=== PATIENT | female | born 1985 | race Caucasian/White ===

== ENCOUNTER 2017-10-05 13:55 | Emergency (ER) | payer BC, MEDICAID ==
--- NOTE | 2017-10-05 14:56 | UC ---
Adalid aPula Jennifer, scribed for Gino Stern MD on 10/05/17 at 1422 . General HPI - HPI Summary HPI Summary: The patient is a 32 year old female who complains of body aches and sore throat since last night. She reports that upon onset she felt more tired than usual. This morning after waking up, her hands and feet hurt, and her whole body felt achey. She adds that her sore throat has worsened and shes had an increasing fever throughout the day. She additionally complains of her eye balls hurting and lower abdominal/pelvic pain that is unusual for her. She took Ibuprofen and came to . She adds that her 15 month old son was recently sick. - History of Current Complaint Chief Complaint: UCRespiratory Stated Complaint: FLU SYMPTOMS Time Seen by Provider: 10/05/17 14:14 Hx Obtained From: Patient Hx Last Menstrual Period: now Onset/Duration: Sudden Onset, Lasting Hours - began last night, Still Present, Worse Since Timing: Constant Onset Severity: Moderate Current Severity: Moderate Pain Intensity: 6 Associated Signs & Symptoms: Positive: Other - body aches, sore throat, fever, lower abdominal/pelvic pain - Allergy/Home Medications Allergies/Adverse Reactions: Allergies Allergy/AdvReac Type Severity Reaction Status Date / Time propylene glycol Allergy Rash And Verified 10/05/17 14:06 Itching Home Medications: Home Medications NK [No Home Medications Reported] 10/05/17 [History Confirmed 10/05/17] PMH/Surg Hx/FS Hx/Imm Hx Previously Healthy: Yes - NEG: HTN, DM - Surgical History Surgical History: None - Family History Known Family History: Negative: Diabetes - Social History Alcohol Use: None Substance Use Type: None Smoking Status (MU): Never Smoked Tobacco Review of Systems Constitutional: Fever Musculoskeletal: Myalgia - hands, feet, body, eyes, pelvic area aches All Other Systems Reviewed And Are Negative: Yes Physical Exam - Summary Physical Exam Summary: General: mildly ill appearing, no pain distress Skin: warm, color reflects adequate perfusion, dry Head: normal Eyes: EOMI, IMTIAZ ENT: Tonsils 2+ bilaterally, exudate on right tonsil, erythema posterior pharynx , posterior anterior cervical lymphadenopathy, positive rhinorrhea. Neck: supple, nontender Respiratory: CTA, breath sounds present Cardiovascular: RRR Abdomen: soft, nontender Bowel: present Musculoskeletal: normal, strength/ROM intact Neurological: normal, sensory/motor intact, A&O x3 Psychological: affect/mood appropriate Triage Information Reviewed: Yes Vital Signs: Initial Vital Signs Temp 98.8 F 10/05/17 14:02 Pulse 112 10/05/17 14:02 Resp 18 10/05/17 14:02 BP 116/80 10/05/17 14:02 Pulse Ox 100 10/05/17 14:02 Vital Signs Reviewed: Yes Course/Dx - Course Course Of Treatment: DISCUSSED RESULTS WITH PATIENT. SX TREATMENT; GET RECHECKED IF WORSE. - Differential Dx - Multi-Symptom Provider Diagnoses: FEVER. MYALGIAS Discharge - Discharge Plan Condition: Stable Disposition: HOME Patient Education Materials: Fever in Adults (ED) Referrals: Rosalva Hinds MD [Primary Care Provider] - Additional Instructions: FOLLOW UP WITH YOUR DOCTOR. GET RECHECKED FOR ANY WORSENING OF YOUR CONDITION OR QUESTIONS OR CONCERNS. The documentation as recorded by the Adalid monge Jennifer accurately reflects the service I personally performed and the decisions made by me, Gino Stern MD.
== END 2017-10-05 15:10 | disposition home or self-care (01) ==
LOC: UCEAST 13:55
DX: R50.9 Fever, unspecified (principal); M79.1 Myalgia
CPT/HCPCS: 87502; 87651; 99201; G0463

== ENCOUNTER 2017-10-07 13:32 | Emergency (ER) | payer MEDICAID ==
--- NOTE | 2017-10-07 14:14 | UC ---
FLU HPI - HPI Summary HPI Summary: PT presents with fever, body aches, sore throat, and fatigue. She was seen for these symptoms 2 days ago and had a negative flu and strep test. She says that her symptoms are getting worse - specifically her sore throat. Now is having more pain with eating and drinking. Tonsils are more swollen and now have giant white spots on them. She says she has also felt feverish. Denies productive cough, SOB, chest pain, n/v/d/c. - History of Current Complaint Chief Complaint: UCGeneralIllness Stated Complaint: SORE THROAT FEVER BODYACHES Time Seen by Provider: 10/07/17 14:13 Hx Obtained From: Patient Hx Last Menstrual Period: 10/01/17 Onset/Duration: Gradual Onset Severity Currently: Moderate Severity Initially: Moderate Pain Intensity: 7 Pain Scale Used: 0-10 Numeric - Allergy/Home Medications Allergies/Adverse Reactions: Allergies Allergy/AdvReac Type Severity Reaction Status Date / Time propylene glycol Allergy Rash And Verified 10/05/17 14:06 Itching Home Medications: Home Medications Ibuprofen TAB* [Motrin TAB* 800 MG] 800 mg PO Q6H 10/07/17 [History Confirmed ] PMH/Surg Hx/FS Hx/Imm Hx Previously Healthy: Yes - Surgical History Surgical History: Yes Surgery Procedure, Year, and Place: bilateral eustachian tubes as child - Family History Known Family History: Negative: Diabetes - Social History Lives: With Family Alcohol Use: None Substance Use Type: None Smoking Status (MU): Never Smoked Tobacco Review of Systems Constitutional: Fever, Fatigue, Other - Body aches Skin: Negative Eyes: Negative ENT: Sore Throat Respiratory: Negative Cardiovascular: Negative Gastrointestinal: Negative Neurovascular: Negative Musculoskeletal: Negative Neurological: Negative Psychological: Negative All Other Systems Reviewed And Are Negative: Yes Physical Exam - Summary Physical Exam Summary: GENERAL: Mildly ill appearing. NAD. WDWN. SKIN: No rashes, sores, ulcers, masses, lesions. HEENT: Head: AT/NC Eyes: EOM intact. Conjunctiva clear without inflammation or discharge. Ears: Hearing grossly normal. TMs intact, no bulging, erythema, or edema. Nose: Nasal mucosa pink and moist. NTTP maxillary and frontal sinus. Throat: Posterior oropharynx moderate erythema and exudates on b/l tonsils. 3+ tonsils. Uvula midline. NECK: Supple. Tender anterior LAD. CHEST: CTAB. No r/r/w. No accessory muscle use. Breathing comfortably and in no distress. CV: RRR. Without m/r/g. Pulses intact. Brisk cap refill. ABDOMEN: NTTP. Bowel sounds intact. No rebound or guarding. NEURO: Alert. CN II-XII grossly intact. PSYCH: Age appropriate behavior. Triage Information Reviewed: Yes Vital Signs: Initial Vital Signs Temp 99 F 10/07/17 13:48 Pulse 94 10/07/17 13:48 Resp 18 10/07/17 13:48 BP 107/68 10/07/17 13:48 Pulse Ox 100 10/07/17 13:48 Flu Course/Dx - Course Course Of Treatment: UA negative. Will draw for CBC and mono today. Treat with zpak and prednisone. 4mg decadron given po in clinic today. - Differential Dx/Diagnosis Provider Diagnoses: Tonsillitis Discharge - Discharge Plan Condition: Stable Disposition: HOME Prescriptions: Azithromycin TAB* [Zithromax TAB (Z-SAURABH) 250 mg #6 tabs] 2 tab PO .TODAY, THEN 1 DAILY #1 saurabh predniSONE TAB* [Deltasone TAB*] 50 mg PO DAILY #5 tab Patient Education Materials: Tonsillitis (ED) Referrals: No Primary Care Phys,NOPCP [Primary Care Provider] - Additional Instructions: If you develop a fever, shortness of breath, chest pain, new or worsening symptoms - please call your PCP or go to the ED.
[2017-10-07] MEDS ORDERED: Dexamethasone TAB* 4 MG PO ONE (14:20)
[2017-10-07 18:34] LABS: ABS Basophils 0 10^3/ul (0-0.2); ABS Eosinophils 0 10^3/ul (0-0.6); ABS Lymphocytes 1.2 10^3/ul (1.0-4.8); ABS Monocytes 1.1 10^3/ul (0-0.8); ABS Neutrophils 5.8 10^3/ul (1.5-7.7); ABS Nucleated RBC 0 10^3/ul; Eosinophil % 0.5 % (0-6); Hematocrit 38 % (35-47); Hemoglobin 12.7 g/dl (12.0-16.0); Lymphocyte % 14.2 % (25-47); Mean Corpuscular HGB Conc 33 g/dl (31-36); Mean Corpuscular Hemoglobin 28 pg (27-31); Mean Corpuscular Volume 83 fL (80-97); Mean Platelet Volume 9 um3 (7.4-10.4); Nucleated Red Blood Cells % 0.1; Platelet Count 226 10^3/ul (150-450); Red Cell Distribution Width 13 % (10.5-15); White Blood Count 8.2 10^3/ul (3.5-10.8)
== END 2017-10-07 14:45 | disposition home or self-care (01) ==
LOC: UCEAST 13:32
DX: J03.90 Acute tonsillitis, unspecified (principal)
CPT/HCPCS: 36415; 81003; 85025; 86308; 99212; G0463; J8540

== ENCOUNTER 2018-07-19 08:09 | Emergency (ER) | payer BC, MEDICAID ==
--- NOTE | 2018-07-19 08:35 | ED ---
Complex/Multi-Sys Presentation - HPI Summary HPI Summary: Patient is a 33 y/o F presenting to ED via ambulance with complaints of SOB, N/V , palpitations, chills, diaphoresis, dizziness, generalized illness and "burning " sores at BLE. 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 Patient states she has been looking at images of MRSA online and that her sores look similar. Nurse reports that patient had stated to her that she has been scratching her arms and legs due to pruritis. Patient reports SOB, N/V, chills, dizziness, diaphoresis and palpations onset this morning. She reports one episode of vomiting bile this morning. Patient also notes that she feels thirsty and her mouth feels dry. She denies cough, fever, diarrhea and abdominal pain. PMHx of depression. She denies smoking cigarettes, no alc or drug usage. FMHx of grandmother with multiple myeloma. On triage, associated severity is rated 4/10, nothing is noted to aggravate/alleviate Sx. Home medications and allergies are reviewed. - History Of Current Complaint Chief Complaint: EDGeneral Time Seen by Provider: 07/19/18 08:27 Hx Obtained From: Patient Onset/Duration: Lasting Hours - SOB, N/V, palpitations, chills, diaphoresis, dizziness, Lasting Days - sores onset a few days ago, Still Present Timing: Constant, Hours - SOB, N/V, palpitations, chills, diaphoresis, dizziness, Days - sores Severity Initially: Moderate - associated severity is rated 4/10 Location: Pain At: - "burning" sores at BLE Character: Sharp - "burning" Aggravating Factor(s): nothing Alleviating Factor(s): nothing Associated Signs And Symptoms: Positive: Dizziness, SOB, Palpitations, Nausea, Vomiting, Diaphoresis, Other - also reports sores at BLE, generalized illness, chills, states her mouth feels dry and she is thristy. Negative: Cough, Diarrhea, Abdominal Pain, Fever - Allergies/Home Medications Allergies/Adverse Reactions: Allergies Allergy/AdvReac Type Severity Reaction Status Date / Time propylene glycol Allergy Rash And Verified 10/05/17 14:06 Itching Home Medications: Home Medications PARoxetine HCL TAB* [Paxil TAB*] 50 mg PO DAILY 07/19/18 [History Confirmed ] PMH/Surg Hx/FS Hx/Imm Hx Sensory History: Denies: Hx Legally Blind, Hx Deafness Opthamlomology History: Denies: Hx Legally Blind EENT History: Denies: Hx Deafness Psychiatric History: Reports: Hx Depression - Surgical History Surgery Procedure, Year, and Place: bilateral eustachian tubes as child Infectious Disease History: No Infectious Disease History: Reports: Hx Shingles Denies: Traveled Outside the [place] in Last 30 Days - Family History Known Family History: Positive: Other - FMHx of cancer in grandmothers Negative: Diabetes - Social History Alcohol Use: None Substance Use Type: Reports: None Smoking Status (MU): Never Smoked Tobacco Review of Systems Positive: Chills, Skin Diaphoresis, Other - generalized illness, states her mouth feels dry and she feels thirsty . Negative: Fever Positive: Palpitations Positive: Shortness Of Breath. Negative: Cough Positive: Vomiting, Nausea. Negative: Abdominal Pain, Diarrhea Positive: Other - POSITIVE - SORES AT BLE Neurological: Other - POSITIVE - DIZZINESS All Other Systems Reviewed And Are Negative: Yes Physical Exam - Summary Physical Exam Summary: VITAL SIGNS: Reviewed. GENERAL: Patient is a well-developed and nourished female who is lying comfortable in the stretcher. Patient is not in any acute respiratory distress. HEAD AND FACE: No signs of trauma. No ecchymosis, hematomas or skull depressions. No sinus tenderness. EYES: PERRLA, EOMI x 2, No injected conjunctiva, no nystagmus. EARS: Hearing grossly intact. Ear canals and tympanic membranes are within normal limits. MOUTH: Oropharynx within normal limits. NECK: Supple, trachea is midline, no adenopathy, no JVD, no carotid bruit, no c- spine tenderness, neck with full ROM. CHEST: Symmetric, no tenderness at palpation LUNGS: Clear to auscultation bilaterally. No wheezing or crackles. CVS: Regular rate and rhythm, S1 and S2 present, no murmurs or gallops appreciated. ABDOMEN: Soft, non-tender. No signs of distention. No rebound no guarding, and no masses palpated. Bowel sounds are normal. EXTREMITIES: FROM in all major joints, no edema, no cyanosis or clubbing. NEURO: Alert and oriented x 3. No acute neurological deficits. Speech is normal and follows commands. SKIN: Dry and warm; patient has chronic skin lesions at BLE which are well healing and not purulent Triage Information Reviewed: Yes Vital Signs On Initial Exam: Initial Vitals Temp Pulse Resp BP Pulse Ox 97.8 F 89 17 108/82 100 07/19/18 08:10 07/19/18 08:10 07/19/18 08:10 07/19/18 08:10 07/19/18 08:10 Vital Signs Reviewed: Yes Diagnostics - Vital Signs Vital Signs Temp Pulse Resp BP Pulse Ox 07/19/18 08:10 97.8 F 89 17 108/82 100 - Laboratory Result Diagrams: 07/19/18 09:18 07/19/18 09:18 Lab Statement: Any lab studies that have been ordered have been reviewed, and results considered in the medical decision making process. - Radiology CXR Radiology Interpretation Completed By: Radiologist Summary of Radiographic Findings: IMPRESSION: No active cardiopulmonary disease is noted. This report was reviewed by ED physician. Re-Evaluation - Re-Evaluation First Eval Re-Evaluation Time: 10:09 Change: Improved Comment: At this time the patient is asymptomatic. The patient is hemodynamically stable alert and oriented 3. I discussed all the findings and test results with the patient. Patient was instructed to return to the emergency room immediately if any of the symptoms return or worsens. Plan of care was discussed with the patient and understands and agrees. All questions were answered at patient satisfaction. There were no further complaints or concerns. Lung exam before discharge: CTA B/L. Good air exchange. No wheezing or crackles heard. CVS: S1 and S2 present. No murmurs appreciated. Patient is alert and oriented x 3. Patient is hemodynamically stable. Patient will be discharged home with follow up PCP in the next 2-3 days Complex Multi-Symp Course/Dx Assessment/Plan: Patient is a 33 y/o F presenting to ED via ambulance with complaints of SOB, N/V, palpitations, chills, diaphoresis, dizziness, generalized illness and "burning" sores at BLE. 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 Patient states she has been looking at images of MRSA online and that her sores look similar. Nurse reports that patient had stated to her that she has been scratching her arms and legs due to pruritus. Patient reports SOB, N/V, chills, dizziness, diaphoresis and palpitations onset this morning. She reports one episode of vomiting bile this morning. Patient also notes that she feels thirsty and her mouth feels dry. She denies cough, fever, diarrhea and abdominal pain. PMHx of depression. She denies smoking cigarettes, no alc or drug usage. FMHx of grandmother with multiple myeloma. On triage, associated severity is rated 4/10, nothing is noted to aggravate/alleviate Sx. Home medications and allergies are reviewed. Blood work without any significant abnormality except for Glucose of 101 and calcium of 8 for which the patient was given calcium and by mouth. The patient also was given Atarax for anxiety. She was given Zofran for nausea and other symptoms have resolved. At this time the patient is asymptomatic. The patient is hemodynamically stable alert and oriented 3. I discussed all the findings and test results with the patient. Patient was instructed to return to the emergency room immediately if any of the symptoms return or worsens. Plan of care was discussed with the patient and understands and agrees. All questions were answered at patient satisfaction. There were no further complaints or concerns. Lung exam before discharge: CTA B/L. Good air exchange. No wheezing or crackles heard. CVS: S1 and S2 present. No murmurs appreciated. Patient is alert and oriented x 3. Patient is hemodynamically stable. Patient will be discharged home with follow up PCP in the next 2-3 days - Diagnoses Provider Diagnoses: Anxiety, Nausea Discharge - Sign-Out/Discharge Documenting (check all that apply): Patient Departure - discharge - Discharge Plan Condition: Stable Disposition: HOME Prescriptions: hydrOXYzine HCL TAB* [Atarax 25 MG TAB*] 25 mg PO TID PRN #20 tab PRN Reason: Anxiety Patient Education Materials: Acute Nausea and Vomiting (ED), Anxiety (ED) Referrals: [facility] [Outside] - 3 Days Additional Instructions: RETURN TO ED FOR ANY NEW OR WORSENING SYMPTOMS. FOLLOW UP WITH PRIMARY CARE PHYSICIAN IN THREE DAYS. - Attestation Statements Document Initiated by Ashlieibe: Yes Documenting Scribe: ZULEIMA BREEN Provider For Whom Scribe is Documenting (Include Credential): SUSAN CÁRDENAS MD Scribe Attestation: ZULEIMA Paula , scribed for SUSAN CÁRDENAS MD on 07/19/18 at 1127. Status of Scribe Document: Ready
[2018-07-19] MEDS ORDERED: Ondansetron INJ* 2 MG/ML VIAL IV ONE (08:39)
[2018-07-19] MEDS ORDERED: NS 0.9% 1000 ML* 1,000 ML IV ONE (08:39)
[2018-07-19] MEDS ORDERED: hydrOXYzine HCL TAB* 50 MG ONE (08:58)
[2018-07-19] MEDS ORDERED: hydrOXYzine HCL TAB* 50 MG PO ONE (09:07)
[2018-07-19 09:29] LABS: Urine Appearance Clear; Urine Bacteria Absent (Absent); Urine Bilirubin Negative (Negative); Urine Blood 1+ (Negative); Urine Color Yellow; Urine Glucose Negative (Negative); Urine Ketones Negative (Negative); Urine Nitrite Negative (Negative); Urine Protein Negative (Negative); Urine Red Blood Cell 1+(3-5/hpf) (Absent); Urine Specific Gravity 1.016 (1.010-1.030); Urine Urobilinogen Negative (Negative); Urine White Blood Cell Absent (Absent)
[2018-07-19 09:32] LABS: ABS Basophils 0 10^3/ul (0-0.2); ABS Eosinophils 0.1 10^3/ul (0-0.6); ABS Lymphocytes 0.5 10^3/ul (1.0-4.8); ABS Monocytes 0.3 10^3/ul (0-0.8); ABS Neutrophils 7.1 10^3/ul (1.5-7.7); ABS Nucleated RBC 0 10^3/ul; Eosinophil % 1.3 %; Hematocrit 39 % (35-47); Hemoglobin 12.6 g/dl (12.0-16.0); Lymphocyte % 6.6 %; Mean Corpuscular HGB Conc 33 g/dl (31-36); Mean Corpuscular Hemoglobin 27 pg (27-31); Mean Corpuscular Volume 83 fL (80-97); Nucleated Red Blood Cells % 0; Platelet Count 197 10^3/ul (150-450); Red Blood Count 4.63 10^6/ul (4.00-5.40); Red Cell Distribution Width 14 % (10.5-15); White Blood Count 8.1 10^3/ul (3.5-10.8)
[2018-07-19 09:48] LABS: Albumin/Globulin Ratio 1.6 (1-3); BUN/Creatinine Ratio 19.8 (8-20); C Reactive Protein 1.11 mg/L (<8.01); EGFR Non-African American 82.5 (>60); Globulin 2.5 g/dL (2-4); Potassium 3.8 mmol/L (3.5-5.0); Total Bilirubin 0.3 mg/dL (0.2-1.0); Total Protein 6.5 g/dL (6.4-8.9)
[2018-07-19] MEDS ORDERED: Calcium Acetate CAP* 667 MG PO ONE (10:14)
[2018-07-19 10:33] VITALS: BP 127/73
== END 2018-07-19 10:37 | disposition home or self-care (01) ==
LOC: ED 08:09
DX: F41.9 Anxiety disorder, unspecified (principal); R11.0 Nausea
CPT/HCPCS: 36415; 71046; 80053; 81003; 81015; 83605; 83690; 85025; 86140; 87040; 96374; 99283; A9270-GY; J2405

== ENCOUNTER 2018-10-26 15:48 | Emergency (ER) | payer BC, MEDICAID ==
[2018-10-26 16:17] VITALS: BP 124/85
--- NOTE | 2018-10-26 16:30 | UC ---
Skin Complaint HPI - HPI Summary HPI Summary: 33 yo female presents with painful rash to right hand. She tells me that about 5 days ago she had some tingling in the area. The next day noticed a rash that was painful and burning. Over the next 2 days the rash blistered. Yesterday the rash started to scab. Pain has persisted. She is concerned this may be shingles as she has had this in the past. She has been applying hydrocortisone cream to the area with no change in her symptoms. She is also asking for a refill of her hydroxyzine because last time she had shingles, this seemed to help with her discomfort. Denies fever, chills, recent illness, SOB, chest pain. - History of Current Complaint Chief Complaint: UCGeneralIllness Time Seen by Provider: 10/26/18 16:30 Stated Complaint: RASH,BODYACHES Hx Obtained From: Patient Hx Last Menstrual Period: 10/12/18 Onset/Duration: Gradual Onset Timing: Constant Onset Severity: Moderate Current Severity: Severe Pain Intensity: 9 Pain Scale Used: 0-10 Numeric - Allergy/Home Medications Allergies/Adverse Reactions: Allergies Allergy/AdvReac Type Severity Reaction Status Date / Time propylene glycol Allergy Rash And Verified 10/26/18 16:17 Itching PMH/Surg Hx/FS Hx/Imm Hx - Additional Past Medical History Additional PMH: Dermatitis Psychological History: Anxiety - Surgical History Surgical History: Yes Surgery Procedure, Year, and Place: bilateral eustachian tubes as child - Family History Known Family History: Positive: Other - FMHx of cancer in grandmothers Negative: Diabetes - Social History Occupation: Employed Full-time Lives: With Family Alcohol Use: None Substance Use Type: None Smoking Status (MU): Never Smoked Tobacco Review of Systems All Other Systems Reviewed And Are Negative: Yes Constitutional: Positive: Negative Skin: Positive: Rash - Right hand Respiratory: Positive: Negative Cardiovascular: Positive: Negative Gastrointestinal: Positive: Negative Neurovascular: Positive: Negative Neurological: Positive: Negative Psychological: Positive: Negative Physical Exam - Summary Physical Exam Summary: GENERAL: NAD. WDWN. No pain distress. SKIN: RIGHT HAND: Dorsal aspect along 1st digit MC there is a cluster of erythematous scabs with scant yellow crusting. TTP. No edema, warmth, or streaking. FROM right thumb. NECK: Supple. Nontender. No lymphadenopathy. CHEST: No accessory muscle use. Breathing comfortably and in no distress. CV: Pulses intact. Cap refill <2seconds NEURO: Alert. PSYCH: Age appropriate behavior. Triage Information Reviewed: Yes Vital Signs: Initial Vital Signs Temp 99.2 F 10/26/18 16:12 Pulse 113 10/26/18 16:12 Resp 18 10/26/18 16:12 BP 124/85 10/26/18 16:12 Pulse Ox 100 10/26/18 16:12 Vital Signs Reviewed: Yes Course/Dx - Course Course Of Treatment: Suspect shingles. Discussed role of antivirals and advised that she is likely outside the window where these would provide her any benefit and shingles appears to be healing well. She agreed with this. Will rx for hydroxyzine as this helped her last time, as well as neurontin for nerve pain. Advised to keep area covered until well healed. Avoid immunocompromised and infants/children until healed. - Diagnoses Provider Diagnosis: Shingles Discharge - Sign-Out/Discharge Documenting (check all that apply): Patient Departure All imaging exams completed and their final reports reviewed: No Studies - Discharge Plan Condition: Stable Disposition: HOME Prescriptions: Gabapentin CAP(*) [Neurontin 100 mg CAP(*)] 100 mg PO TID PRN #90 cap PRN Reason: Pain hydrOXYzine HCl [Hydroxyzine HCl] 25 mg PO TID PRN #30 tablet PRN Reason: Anxiety Patient Education Materials: Shingles (ED) Forms: *Work Release Referrals: No Primary Care Phys,NOPCP [Primary Care Provider] - Additional Instructions: If you develop a fever, shortness of breath, chest pain, new or worsening symptoms - please call your PCP or go to the ED. - Billing Disposition and Condition Condition: STABLE Disposition: Home
== END 2018-10-26 16:50 | disposition home or self-care (01) ==
LOC: UCEAST 15:48
DX: B02.9 Zoster without complications (principal); Z88.8 Allergy status to other drugs, medicaments and biological substances
CPT/HCPCS: 99212; G0463

== ENCOUNTER 2018-11-25 17:30 | Emergency (ER) | payer BC, MEDICAID ==
[2018-11-25 17:39] VITALS: BP 112/85
--- NOTE | 2018-11-25 18:03 | ED ---
Skin Complaint - HPI Summary HPI Summary: 33-year-old female presents with rash for past couple months. She states that she is seeing a bulk folder for this rash next month. States she gets neuropathic pain from the rash. She states this started as she is allergic reaction to propylene glycol which did not know at the time. States that sometimes steroids help but they often have glycol in them. Denies any fevers. She is requesting a refill of her gabapentin and hydroxyzine due to the itching and neuropathic pain. - History of Current Complaint Chief Complaint: UCSkin Time Seen by Provider: 11/25/18 17:53 Stated Complaint: RASH Hx Last Menstrual Period: 11/14/18 Pain Intensity: 8 - Allergy/Home Medications Allergies/Adverse Reactions: Allergies Allergy/AdvReac Type Severity Reaction Status Date / Time propylene glycol Allergy Rash And Verified 11/25/18 17:39 Itching PMH/Surg Hx/FS Hx/Imm Hx Endocrine/Hematology History: Denies: Hx Anticoagulant Therapy Respiratory History: Denies: Hx Asthma Sensory History: Denies: Hx Legally Blind, Hx Deafness Opthamlomology History: Denies: Hx Legally Blind Psychiatric History: Reports: Hx Depression - Surgical History Surgery Procedure, Year, and Place: bilateral eustachian tubes as child Infectious Disease History: No Infectious Disease History: Reports: Hx Shingles Denies: Traveled Outside the [place] in Last 30 Days - Family History Known Family History: Positive: Other - FMHx of cancer in grandmothers Negative: Diabetes - Social History Alcohol Use: None Substance Use Type: Reports: None Smoking Status (MU): Never Smoked Tobacco Review of Systems Negative: Fever Negative: Chest Pain Negative: Shortness Of Breath Positive: Rash All Other Systems Reviewed And Are Negative: Yes Physical Exam Triage Information Reviewed: Yes Vital Signs On Initial Exam: Initial Vitals Temp Pulse Resp BP Pulse Ox 98.4 F 80 16 112/85 100 11/25/18 17:33 11/25/18 17:33 11/25/18 17:33 11/25/18 17:33 11/25/18 17:33 Vital Signs Reviewed: Yes Appearance: Positive: Well-Appearing Skin: Positive: Warm, Dry, Other - area of dry skin and erythema on right dorsum of hand near thumb with papules and escharization Head/Face: Positive: Normal Head/Face Inspection Eyes: Positive: Normal, Conjunctiva Clear ENT: Positive: Pharynx normal Respiratory/Lung Sounds: Positive: Clear to Auscultation, Breath Sounds Present Cardiovascular: Positive: Normal, RRR Musculoskeletal: Positive: Normal Neurological: Positive: Normal Psychiatric: Positive: Normal Diagnostics - Vital Signs Vital Signs Temp Pulse Resp BP Pulse Ox 11/25/18 17:33 98.4 F 80 16 112/85 100 - Laboratory Lab Statement: Any lab studies that have been ordered have been reviewed, and results considered in the medical decision making process. Course/Dx - Course Course Of Treatment: 33-year-old female presents with rash for past couple months. She states that she is seeing a bulk folder for this rash next month. States she gets neuropathic pain from the rash. She states this started as she is allergic reaction to propylene glycol which did not know at the time. States that sometimes steroids help but they often have glycol in them. Denies any fevers. She is requesting a refill of her gabapentin and hydroxyzine due to the itching and neuropathic pain. On exam has rash on right hand with excoriation and erythema and papules. Most consistent with eczema type rash. We'll prescribe steroids. We'll give refills for gabapentin and hydroxyzine for pain. Patient understands agrees plan. - Differential Diagnoses - Skin Complaint Differential Diagnoses: Cellulitis, Contact Dermatitis, Scabies - Diagnoses Provider Diagnoses: Rash Discharge - Sign-Out/Discharge Documenting (check all that apply): Patient Departure All imaging exams completed and their final reports reviewed: No Studies - Discharge Plan Condition: Good Disposition: HOME Prescriptions: Gabapentin CAP(*) [Neurontin 100 mg CAP(*)] 100 mg PO TID PRN #90 cap PRN Reason: Pain hydrOXYzine HCl [Hydroxyzine HCl] 25 mg PO TID PRN #30 tablet PRN Reason: Pruritis Triamcinolone 0.5% OINT * 1 applic TOPICAL BID #1 tube Patient Education Materials: Acute Rash (ED) Referrals: No Primary Care Phys,NOPCP [Primary Care Provider] - Additional Instructions: take gabapentin three times a day as needed for pain Take hydroxyzine up to three times a day as needed for itching apply cream twice a day Follow up with dermatology Return to ED if develop any new or worsening symptoms - Billing Disposition and Condition Condition: GOOD Disposition: Home - Attestation Statements Provider Attestation: I did not see or disposition this patient. I was available for consult.
== END 2018-11-25 18:10 | disposition home or self-care (01) ==
LOC: UCEAST 17:30
DX: R21 Rash and other nonspecific skin eruption (principal); Z76.0 Encounter for issue of repeat prescription; F32.9 Major depressive disorder, single episode, unspecified
CPT/HCPCS: 99212; G0463

== ENCOUNTER 2018-12-24 15:58 | Emergency (ER) | payer BC, MEDICAID ==
[2018-12-24 16:15] VITALS: BP 113/70
--- NOTE | 2018-12-24 16:31 | UC ---
UC General HPI - HPI Summary HPI Summary: 33-year-old woman comes in with a chief complaint of insomnia. Patient's been suffering from right hand and wrist pain for quite some time and she has an appointment with orthopedic hand specialist in the near future. The pain is worse at night and she has been able sleep. She's tried Benadryl and melatonin. She is on ibuprofen. In the past she's tried alprazolam which is made her sleepy. - History of Current Complaint Chief Complaint: UCGeneralIllness Stated Complaint: HAND PAIN Time Seen by Provider: 12/24/18 16:10 Hx Last Menstrual Period: 11/14/18 Pain Intensity: 2 - Allergy/Home Medications Allergies/Adverse Reactions: Allergies Allergy/AdvReac Type Severity Reaction Status Date / Time propylene glycol Allergy Rash And Verified 12/24/18 16:15 Itching PMH/Surg Hx/FS Hx/Imm Hx Previously Healthy: Yes Other History Of: Negative For: Anticoagulant Therapy - Surgical History Surgical History: Yes Surgery Procedure, Year, and Place: bilateral eustachian tubes as child - Family History Known Family History: Positive: Other - FMHx of cancer in grandmothers Negative: Diabetes - Social History Alcohol Use: None Substance Use Type: None Smoking Status (MU): Never Smoked Tobacco Review of Systems All Other Systems Reviewed And Are Negative: Yes Constitutional: Positive: Negative Skin: Positive: Negative Eyes: Positive: Negative ENT: Positive: Negative Respiratory: Positive: Negative Cardiovascular: Positive: Negative Gastrointestinal: Positive: Negative Motor: Positive: Negative Neurovascular: Positive: Negative Musculoskeletal: Positive: Other: - RT CARPAL TUNNEL SYMPTOMS Neurological: Positive: Negative Psychological: Positive: Negative Is Patient Immunocompromised?: No Physical Exam Triage Information Reviewed: Yes Appearance: Well-Appearing, No Pain Distress, Well-Nourished Vital Signs: Initial Vital Signs Temp 99.4 F 12/24/18 16:08 Pulse 93 12/24/18 16:08 Resp 20 12/24/18 16:08 BP 113/70 12/24/18 16:08 Pulse Ox 100 12/24/18 16:08 Vital Signs Reviewed: Yes Eye Exam: Normal Eyes: Positive: Conjunctiva Clear Neck: Positive: Supple Respiratory: Positive: No respiratory distress Musculoskeletal: Positive: Other: - RT WRIST DORSUM TENDER TO PALPATION. PATIENT INDICATES THE FINGERS OF THE RIGHT HAND IN THE MEDIAN NERVE DISTRIBUTION THE AREA AFFECTED Neurological: Positive: Alert Psychological: Positive: Age Appropriate Behavior Skin Exam: Normal Course/Dx - Course Course Of Treatment: RX ALPRAZOLAM FOR INSOMNIA. F/U PMD AND ORTHOPEDICS - Diagnoses Provider Diagnosis: Right carpal tunnel syndrome, Insomnia Discharge - Sign-Out/Discharge Documenting (check all that apply): Patient Departure All imaging exams completed and their final reports reviewed: No Studies - Discharge Plan Condition: Stable Disposition: HOME Prescriptions: ALPRAZolam [Alprazolam Odt] 0.25 mg PO TID PRN #15 tab.rapdis MDD 3 PRN Reason: Insomnia Patient Education Materials: Cubital Tunnel Syndrome (ED), Insomnia (ED) Referrals: Kim Francisco MD [Medical Doctor] - Additional Instructions: FOLLOW UP WITH YOUR PRIMARY CARE DOCTOR FOR YOUR INSOMNIA AND ORTHOPEDICS FOR YOUR CARPAL TUNNEL SYNDROME. GET RECHECKED SOONER IF YOUR CONDITION WORSENS OR ANY QUESTIONS OR CONCERNS. - Billing Disposition and Condition Condition: STABLE Disposition: Home
== END 2018-12-24 16:35 | disposition home or self-care (01) ==
LOC: UCEAST 15:58
DX: G56.01 Carpal tunnel syndrome, right upper limb (principal); G47.00 Insomnia, unspecified; Z88.8 Allergy status to other drugs, medicaments and biological substances
CPT/HCPCS: 99213; G0463

== ENCOUNTER 2019-01-30 14:27 | Emergency (ER) | payer BC ==
--- NOTE | 2019-01-30 15:53 | ED ---
Abdominal Pain/Female - HPI Summary HPI Summary: 33 year old F presenting to [facility] accompanied by son with a chief complaint of abdominal pain since yesterday. The patient rates the pain 7/10 in severity. Symptoms aggravated by nothing. Symptoms alleviated by nothing. Patient reports diarrhea with "white fluffy clumps." Patient states that her stools smell foul. Patient also reports myalgia x1 week. Patient states that her skin and ears feel itchy, her eyes are dry and watery x1 week. She has lesions on her face and upper and lower extremities. Patient states that there has been water damage and black mold in her apartment so she had to move out. - History of Current Complaint Chief Complaint: EDAbhijitin Stated Complaint: "ABD PAIN PER PT" Time Seen by Provider: 01/30/19 15:44 Hx Obtained From: Patient Hx Last Menstrual Period: 11/14/18 ?: No Onset/Duration: Lasting Days - 1, Still Present Timing: Constant Severity Currently: Moderate Pain Intensity: 7 Pain Scale Used: 0-10 Numeric Location: Diffuse Aggravating Factor(s): Nothing Alleviating Factor(s): Nothing Associated Signs and Symptoms: Positive: Other: - diarrhea with "white fluffy clumps," stools smell foul, myalgia, skin and ears feel itchy, her eyes are dry and watery, lesions on her face and upper and lower extremities Allergies/Adverse Reactions: Allergies Allergy/AdvReac Type Severity Reaction Status Date / Time propylene glycol Allergy Rash And Verified 12/24/18 16:15 Itching PMH/Surg Hx/FS Hx/Imm Hx Previously Healthy: No Endocrine/Hematology History: Denies: Hx Anticoagulant Therapy Respiratory History: Denies: Hx Asthma Sensory History: Denies: Hx Legally Blind, Hx Deafness Opthamlomology History: Denies: Hx Legally Blind Psychiatric History: Reports: Hx Attention Deficit Hyperactivity Disorder, Hx Depression, Hx Substance Abuse - quit ETOH in 2012 - Surgical History Surgery Procedure, Year, and Place: bilateral eustachian tubes as child Infectious Disease History: No Infectious Disease History: Reports: Hx Shingles Denies: Traveled Outside the [place] in Last 30 Days - Family History Known Family History: Positive: Other - FMHx of cancer in grandmothers Negative: Diabetes - Social History Alcohol Use: None Hx Substance Use: No Substance Use Type: Reports: None Hx Tobacco Use: No Smoking Status (MU): Never Smoked Tobacco Review of Systems Positive: Other - itchy ears, eyes are dry and watery Positive: Abdominal Pain, Diarrhea, Other - stools smell foul Positive: Myalgia Positive: Other - lesions on her face and upper and lower extremities, itchy skin All Other Systems Reviewed And Are Negative: Yes Physical Exam - Summary Physical Exam Summary: Appearance: The patient is well-nourished in no acute distress and in no acute pain. She is in non-stop movement. Skin: She has excoriated macular lesions sparsely on face and upper and lower extremities. HEENT: The head is normocephalic and atraumatic. The pupils are equal and reactive. The conjunctivae are clear and without drainage. Nares are patent and without drainage. Mouth reveals moist mucous membranes and the throat is without erythema and exudate. The external ears are intact. The ear canals are patent and without drainage. The tympanic membranes are intact. Neck: The neck is supple with full range of motion and non-tender. There are no carotid bruits. There is no neck vein distension. Respiratory: Chest is non-tender. Lungs are clear to auscultation and breath sounds are symmetrical and equal. Cardiovascular: Heart is regular rate and rhythm. There is no murmur or rub auscultated. There is no peripheral edema and pulses are symmetrical and equal. Abdomen: The abdomen is soft and non-tender. There are normal bowel sounds heard in all four quadrants and there is no organomegaly palpated. Musculoskeletal: There is no back tenderness noted. Extremities are non-tender with full range of motion. There is good capillary refill. There is no peripheral edema or calf tenderness elicited. Neurological: Patient is alert and oriented to person, place and time. The patient has symmetrical motor strength in all four extremities. Cranial nerves are grossly intact. Deep tendon reflexes are symmetrical and equal in all four extremities. Psychiatric: The patient has an appropriate affect and does not exhibit any anxiety or depression Triage Information Reviewed: Yes Vital Signs On Initial Exam: Initial Vitals Temp Pulse Resp BP Pulse Ox 98.2 F 98 18 116/80 98 01/30/19 14:36 01/30/19 14:36 01/30/19 14:36 01/30/19 14:36 01/30/19 14:36 Vital Signs Reviewed: Yes Diagnostics - Vital Signs Vital Signs Temp Pulse Resp BP Pulse Ox 01/30/19 14:36 98.2 F 98 18 116/80 98 - Laboratory Result Diagrams: 01/30/19 17:28 01/30/19 17:32 Lab Statement: Any lab studies that have been ordered have been reviewed, and results considered in the medical decision making process. Abdominal Pain Fem Course/Dx - Course Course Of Treatment: Ms. Joseph presented with a variety of complaints including bedbug bites, an unusual sweet smell to her stool and pelvic tension. She presents agitated and voluble but focused. She has an excoriated macular rash that started on her face and bilateral upper and lower extremities. Her clinical presentation is concerning for meth use. She denies it. She is on Adderall and states that she's been taking that less than prescribed however she has filled her prescription according to the I stop for 60 pills every 30 days. She thinks it is bed bugs although no one else that she lives with has any problem and it clinically does not look like bed bug bites. I recommended close follow-up. She is competent to make decisions. She also brought her son in with a concern that his stools are sweet smelling. He was nontoxic in appearance, playful and cooperative. His grandfather (her father) took the little boy home. Her father reported that she has been living separately with the little boy and that he has been concerned because the apartment is a mass. She has recently moved in with him and he has searched the house for any sign of insect infestation because that's been her concerned. He has not found any. Again her son looks clean and well cared for. I recommended close follow-up my concern is that this is a reaction to either her Adderall or another substance such as meth or bath salts. - Diagnoses Provider Diagnoses: Rash and other nonspecific skin eruption Discharge - Sign-Out/Discharge Documenting (check all that apply): Patient Departure - Discharge Patient Received Moderate/Deep Sedation with Procedure: No - Discharge Plan Condition: Stable Disposition: HOME Referrals: Abby Nicholas MD [Medical Doctor] - No Primary Care Phys,NOPCP [Primary Care Provider] - Additional Instructions: The source of your symptoms is uncertain. I recommend following up with [facility] medicine this week for further evaluation. - Billing Disposition and Condition Condition: STABLE Disposition: Home - Attestation Statements Document Initiated by Scribe: Yes Documenting Scribe: Neena Garcia Provider For Whom Ashlieibsoila is Documenting (Include Credential): Marco A Rojas MD Scribe Attestation: I, Neena Garcia, scribed for Marco A Rojas MD on 01/30/19 at 2114. Scribe Documentation Reviewed: Yes Provider Attestation: The documentation as recorded by the scribe, Neena Garcia accurately reflects the service I personally performed and the decisions made by me, Marco A Rojas MD Status of Scribe Document: Viewed
[2019-01-30 16:31] LABS: Urine Appearance Clear; Urine Bacteria Absent (Absent); Urine Bilirubin Negative (Negative); Urine Blood Negative (Negative); Urine Color Amber; Urine Glucose Negative (Negative); Urine Ketones Trace (Negative); Urine Nitrite Negative (Negative); Urine Protein 2+(100 mg/dL) (Negative); Urine Red Blood Cell 3+(>10/hpf) (Absent); Urine Specific Gravity 1.034 (1.010-1.030); Urine Squamous Epithelial Cell Present (Absent); Urine Urobilinogen Negative (Negative); Urine White Blood Cell Trace(0-5/hpf) (Absent)
[2019-01-30 16:42] LABS: Urine Benzodiazepine Screen None Detected (None Detect); Urine Opiates Screen None Detected (None Detect)
[2019-01-30 17:41] LABS: ABS Eosinophils 0.1 10^3/ul (0-0.6); ABS Lymphocytes 2.6 10^3/ul (1.0-4.8); ABS Monocytes 0.5 10^3/ul (0-0.8); ABS Neutrophils 3.6 10^3/ul (1.5-7.7); Eosinophil % 1.4 %; Hematocrit 36 % (35-47); Hemoglobin 11.9 g/dL (12.0-16.0); Lymphocyte % 37.5 %; Mean Corpuscular HGB Conc 33 g/dL (31-36); Mean Corpuscular Hemoglobin 27 pg (27-31); Mean Corpuscular Volume 80 fL (80-97); Mean Platelet Volume 7.8 fL (7.4-10.4); Nucleated Red Blood Cells % 0.1; Platelet Count 402 10^3/uL (150-450); Red Blood Count 4.48 10^6 /uL (3.70-4.87); Red Cell Distribution Width 14 % (10-15); White Blood Count 6.8 10^3/uL (3.5-10.8)
[2019-01-30 18:00] LABS: ALT 20 U/L (7-52); AST 25 U/L (13-39); Albumin 4.5 g/dL (3.2-5.2); Albumin/Globulin Ratio 1.7 (1-3); Alkaline Phosphatase 54 U/L (34-104); Anion Gap 8 mmol/L (2-11); BUN/Creatinine Ratio 14.8 (8-20); Blood Urea Nitrogen 12 mg/dL (6-24); CO2 Carbon Dioxide 27 mmol/L (22-32); Calcium 9.3 mg/dL (8.6-10.3); Chloride 105 mmol/L (101-111); EGFR African American 99.8 (>60); EGFR Non-African American 82.5 (>60); Globulin 2.7 g/dL (2-4); Glucose 98 mg/dL (70-100); Potassium 3.4 mmol/L (3.5-5.0); Sodium 140 mmol/L (135-145); Total Protein 7.2 g/dL (6.4-8.9)
[2019-01-30 18:06] LABS: HCG Pregnancy < 0.60 mIU/mL
[2019-01-30 18:26] LABS: Acetaminophen < 15 mcg/mL; Alcohol < 10 mg/dL (<10); Salicylate < 2.50 mg/dL (<30)
[2019-01-30 18:36] LABS: TSH (Thyroid Stimulating Horm) 1.66 mcIU/mL (0.34-5.60)
[2019-01-30 19:27] VITALS: BP 134/86
== END 2019-01-30 19:26 | disposition home or self-care (01) ==
LOC: ED 14:27
DX: R21 Rash and other nonspecific skin eruption (principal)
CPT/HCPCS: 36415; 80053; 80307; 80320; 80329; 81003; 81015; 84443; 84702; 85025; 87086; 99282; G0480

== ENCOUNTER 2019-03-17 12:05 | Emergency (ER) | payer BC ==
[2019-03-17 12:34] VITALS: BP 108/75
--- NOTE | 2019-03-17 12:46 | UC ---
Skin Complaint HPI - HPI Summary HPI Summary: 33 yo female with worsening bilat feet edema x 4 days now painful - History of Current Complaint Chief Complaint: UCSkin Time Seen by Provider: 03/17/19 12:45 Stated Complaint: SWOLLEN FEET Hx Obtained From: Patient Hx Last Menstrual Period: 3 weeks ago Onset/Duration: Gradual Onset, Lasting Days Timing: Constant Onset Severity: Mild Current Severity: Moderate Pain Intensity: 5 Pain Scale Used: 0-10 Numeric Location: Foot (Right), Foot (Left) Character: Swelling, Painful Aggravating Factor(s): Nothing Alleviating Factor(s): Nothing Associated Signs & Symptoms: Positive: Rash - rxed for scabies, Tenderness - Allergy/Home Medications Allergies/Adverse Reactions: Allergies Allergy/AdvReac Type Severity Reaction Status Date / Time propylene glycol Allergy Rash And Verified 03/17/19 12:33 Itching PMH/Surg Hx/FS Hx/Imm Hx Previously Healthy: Yes Psychological History: Depression Other History Of: Negative For: Anticoagulant Therapy - Surgical History Surgical History: Yes Surgery Procedure, Year, and Place: bilateral ear tubes as child - Family History Known Family History: Positive: Other - FMHx of cancer in grandmothers Negative: Diabetes - Social History Alcohol Use: None Substance Use Type: None Substance Use Comment - Amount & Last Used: past use Smoking Status (MU): Never Smoked Tobacco Review of Systems All Other Systems Reviewed And Are Negative: Yes Constitutional: Positive: Negative Skin: Positive: Negative Eyes: Positive: Negative ENT: Positive: Negative Respiratory: Positive: Negative Cardiovascular: Positive: Negative Gastrointestinal: Positive: Negative Genitourinary: Positive: Negative Motor: Positive: Negative Neurovascular: Positive: Negative Musculoskeletal: Positive: Edema Neurological: Positive: Negative Psychological: Positive: Negative Physical Exam Triage Information Reviewed: Yes Appearance: Well-Appearing, No Pain Distress, Well-Nourished Vital Signs: Initial Vital Signs Temp 98.9 F 03/17/19 12:27 Pulse 90 03/17/19 12:27 Resp 14 03/17/19 12:27 BP 108/75 03/17/19 12:27 Pulse Ox 100 03/17/19 12:27 Vital Signs Reviewed: Yes Eyes: Positive: Conjunctiva Clear ENT: Positive: Hearing grossly normal, Other - facial tics. Negative: Nasal congestion, Nasal drainage, Trismus, Muffled voice, Hoarse voice Neck: Positive: Supple, Nontender Respiratory: Positive: Lungs clear, Normal breath sounds, No respiratory distress Cardiovascular: Positive: RRR, No Murmur Musculoskeletal: Positive: Edema @ - bilat feet edema (moderate) mild hand edema Neurological: Positive: Alert Psychological Exam: Normal Skin Exam: Other - may excoriations both arms and legs Diagnostics - Laboratory Lab Results: ua (-) protein Course/Dx - Diagnoses Provider Diagnosis: Leg edema, H/O scabies Discharge - Sign-Out/Discharge Documenting (check all that apply): Patient Departure All imaging exams completed and their final reports reviewed: No Studies - Discharge Plan Condition: Stable Disposition: HOME Prescriptions: Permethrin [Elimite] 60 gm TOPICAL ONCE #1 cream..g. Patient Education Materials: Leg Edema (ED) Referrals: [facility] [place] [facility] [place]] - As Soon As Possible Additional Instructions: elevate elevate elevate will retreat you for scabies blood work pending to ER for new or worsening symptoms - Billing Disposition and Condition Condition: STABLE Disposition: Home
[2019-03-17 19:18] LABS: ABS Eosinophils 0.2 10^3/ul (0-0.6); ABS Lymphocytes 2.4 10^3/ul (1.0-4.8); ABS Monocytes 0.5 10^3/ul (0-0.8); ABS Neutrophils 2.7 10^3/ul (1.5-7.7); Eosinophil % 2.9 %; Hematocrit 35 % (35-47); Hemoglobin 11.4 g/dL (12.0-16.0); Lymphocyte % 41.2 %; Mean Corpuscular HGB Conc 32 g/dL (31-36); Mean Corpuscular Hemoglobin 25 pg (27-31); Mean Corpuscular Volume 79 fL (80-97); Nucleated Red Blood Cells % 0.1; Platelet Count 276 10^3/uL (150-450); Red Blood Count 4.48 10^6 /uL (3.70-4.87); Red Cell Distribution Width 14 % (10-15); White Blood Count 5.8 10^3/uL (3.5-10.8)
[2019-03-17 19:24] LABS: Albumin 4.6 g/dL (3.2-5.2); Calcium 9.1 mg/dL (8.6-10.3); Potassium 3.7 mmol/L (3.5-5.0); Total Bilirubin 0.7 mg/dL (0.2-1.0)
[2019-03-17 19:29] LABS: Albumin/Globulin Ratio 2.2 (1-3); BUN/Creatinine Ratio 13.6 (8-20); EGFR African American 99.8 (>60); EGFR Non-African American 82.5 (>60); Globulin 2.1 g/dL (2-4); Total Protein 6.7 g/dL (6.4-8.9)
[2019-03-17 20:07] LABS: TSH (Thyroid Stimulating Horm) 0.73 mcIU/mL (0.34-5.60)
--- NOTE | 2019-03-18 07:24 | UC ---
- Progress Note Progress Note: Labs come back for a March 17, 2019. Labs are drawn due to pedal edema. Patient's hemoglobin is 11.4 which is slightly low normal was 12,000-16,000. Comparing to old lab work on January 30, 2019 the patient's hemoglobin was 11.9 and back in July 2018 it was 12.6. Using the state is a slight downward trend of hemoglobin indicating some anemia which may contribute to the pedal edema. Nursing to call patient inform them results and make sure they follow-up with primary care doctor and they don't have a primary care doctor given the physician referral phone number. Otherwise the rest of the labs to include kidney functions were normal. Course/Dx - Diagnoses Provider Diagnoses: Leg edema, H/O scabies Discharge - Sign-Out/Discharge Documenting (check all that apply): Patient Departure All imaging exams completed and their final reports reviewed: No Studies - Discharge Plan Condition: Stable Disposition: HOME Prescriptions: Permethrin [Elimite] 60 gm TOPICAL ONCE #1 cream..g. Patient Education Materials: Leg Edema (ED) Referrals: [facility] [place] [facility] [place]] - As Soon As Possible Additional Instructions: elevate elevate elevate will retreat you for scabies blood work pending to ER for new or worsening symptoms - Billing Disposition and Condition Condition: STABLE Disposition: Home
== END 2019-03-17 14:15 | disposition home or self-care (01) ==
LOC: UCEAST 12:05
DX: R60.9 Edema, unspecified (principal)
CPT/HCPCS: 36415; 80053; 81002; 84443; 85025; 99212; G0463

== ENCOUNTER 2019-06-23 18:14 | Emergency (ER) | payer BC ==
[2019-06-23] MEDS: NS 0.9% 1000 ML** 1,000 ML IV ONE ×2 (22:37→23:46)
[2019-06-23 22:44] LABS: ABS Basophils 0.1 10^3/ul (0-0.2); ABS Eosinophils 0.2 10^3/ul (0-0.6); ABS Lymphocytes 2.9 10^3/ul (1.0-4.8); ABS Monocytes 0.9 10^3/ul (0-0.8); Eosinophil % 2.1 %; Hematocrit 35 % (35-47); Hemoglobin 11.6 g/dL (12.0-16.0); Lymphocyte % 35.7 %; Mean Corpuscular HGB Conc 33 g/dL (31-36); Mean Corpuscular Hemoglobin 26 pg (27-31); Mean Corpuscular Volume 79 fL (80-97); Mean Platelet Volume 7.3 fL (7.4-10.4); Nucleated Red Blood Cells % 0.1; Platelet Count 393 10^3/uL (150-450); Red Blood Count 4.42 10^6 /uL (3.70-4.87); Red Cell Distribution Width 15 % (10-15)
[2019-06-23 22:55] LABS: INR 1.09 (0.82-1.09)
[2019-06-23 23:02] LABS: ALT 114 U/L (7-52); AST 162 U/L (13-39); Albumin 4.1 g/dL (3.2-5.2); Albumin/Globulin Ratio 1.4 (1-3); Alkaline Phosphatase 87 U/L (34-104); Anion Gap 10 mmol/L (2-11); BUN/Creatinine Ratio 17.1 (8-20); Blood Urea Nitrogen 13 mg/dL (6-24); CO2 Carbon Dioxide 25 mmol/L (22-32); Calcium 9.1 mg/dL (8.6-10.3); Chloride 101 mmol/L (101-111); EGFR African American 106.7 (>60); EGFR Non-African American 88.2 (>60); Glucose 107 mg/dL (70-100); Magnesium 1.6 mg/dL (1.9-2.7); Potassium 3.2 mmol/L (3.5-5.0); Sodium 136 mmol/L (135-145); Total Protein 7.1 g/dL (6.4-8.9)
--- NOTE | 2019-06-23 23:15 | ED ---
Syncope/Near Syncope - HPI Summary HPI Summary: This pt is a 34 Y/O F presenting to [facility] with a CC of weakness that started on 06/21/19 with associated leg pain and fluid buildup. She states that she is unsure if she had a fever. She states that she has ear pain and myalgia. She states that she was standing in the kitchen when she had a syncopal episode and hit her forehead on the ground. She states that she thinks she is very dehydrated. She states that she has been drinking a lot of water. She states that she had another syncopal episode on 06/22/19 and states that she came to 3 hours later. She states that she had 2 other syncopal episodes as well on . She states that she called her PCP who recommended coming to the ED. She states that she has felt nauseas today without any vomiting episode and states that she has been drinking multiple smoothies today. She states no alleviating factors. She states that she has a PMHx of opioid addiction and states that she has recently began taking suboxone. Her grandmother had a Hx of breast CA. - History Of Current Complaint Chief Complaint: EDSeizure Time Seen by Provider: 06/23/19 22:20 Hx Obtained From: Patient Onset/Duration: Sudden Onset, Lasting Days - 2 Timing: Intermittent Episode Lasting Context: Unwitnessed, Loss Of Consciousness Activity At Onset: At Rest Associated Head Trauma: Yes Aggravating Factor(s): Other - states that she has been severly dehydrated Alleviating Factor(s): Spontaneous Resolution Associated Signs And Symptoms: Negative, Head Trauma (Recent), Headache, Pain - bilateral leg pain, swelling of her legs, Weakness Frequency: Episodes x___ - 4 over the course of 2 days, Episodes Lasting ____ ( in Mins/Days/Weeks/Years) - longest episode lasted 3 hours - Allergies/Home Medications Allergies/Adverse Reactions: Allergies Allergy/AdvReac Type Severity Reaction Status Date / Time No Known Allergies Allergy Verified 06/23/19 18:22 Home Medications: Home Medications Buprenorp/Nalox 8-2 MG SL TAB [Suboxone 8-2 mg SL TAB*] 1 tab.sl SL BID [History Confirmed 06/23/19] Dextroamphetamine/Amphetamine [Dextroamp-Amphetamin 30 mg Tab] 30 mg PO BID [History Confirmed 06/23/19] Mirtazapine TAB* [Remeron TAB*] 15 mg PO BEDTIME 06/23/19 [History Confirmed ] PARoxetine HCL TAB* [Paxil TAB*] 10 mg PO DAILY 06/23/19 [History Confirmed ] PARoxetine HCL TAB* [Paxil TAB*] 40 mg PO DAILY 06/23/19 [History Confirmed ] hydrOXYzine HCL TAB* [Atarax 25 MG TAB*] 25 mg PO TID PRN 06/23/19 [History Confirmed 06/23/19] PMH/Surg Hx/FS Hx/Imm Hx Previously Healthy: Yes Endocrine/Hematology History: Denies: Hx Anticoagulant Therapy, Hx Diabetes, Hx Thyroid Disease Cardiovascular History: Denies: Hx Hypertension Respiratory History: Denies: Hx Asthma, Hx Chronic Obstructive Pulmonary Disease (COPD) GI History: Denies: Hx Ulcer Sensory History: Denies: Hx Legally Blind, Hx Deafness Opthamlomology History: Denies: Hx Legally Blind Psychiatric History: Reports: Hx Attention Deficit Hyperactivity Disorder, Hx Depression, Hx Substance Abuse - quit ETOH in 2013 - Surgical History Surgical History: Yes Surgery Procedure, Year, and Place: bilateral ear tubes as child - Immunization History Immunizations Up to Date: Yes Infectious Disease History: No Infectious Disease History: Reports: Hx of Known/Suspected MRSA, Hx Shingles Denies: Hx Hepatitis, Hx Human Immunodeficiency Virus (HIV), Traveled Outside the [place] in Last 30 Days - Family History Known Family History: Positive: Other - FMHx of cancer in grandmothers Negative: Diabetes - Social History Occupation: Employed Full-time Lives: With Family Alcohol Use: None Hx Substance Use: No Substance Use Type: Reports: None Substance Use Comment - Amount & Last Used: past use Hx Tobacco Use: No Smoking Status (MU): Never Smoked Tobacco Review of Systems - ROS Summary Review of Systems Summary: Home Medications Medication Instructions Recorded Confirmed Type Gabapentin CAP(*) [Neurontin 100 100 mg PO TID PRN #90 cap 11/25/18 06/23/19 Rx mg CAP(*)] Buprenorp/Nalox 8-2 MG SL TAB 1 tab.sl SL BID 06/23/19 06/23/19 History [Suboxone 8-2 mg SL TAB*] Dextroamphetamine/Amphetamine 30 mg PO BID 06/23/19 06/23/19 History [Dextroamp-Amphetamin 30 mg Tab] Mirtazapine TAB* [Remeron TAB*] 15 mg PO BEDTIME 06/23/19 06/23/19 History PARoxetine HCL TAB* [Paxil TAB*] 10 mg PO DAILY 06/23/19 06/23/19 History PARoxetine HCL TAB* [Paxil TAB*] 40 mg PO DAILY 06/23/19 06/23/19 History hydrOXYzine HCL TAB* [Atarax 25 MG 25 mg PO TID PRN 06/23/19 06/23/19 History TAB*] Negative: Fever Negative: Photophobia Positive: Vomiting, Nausea. Negative: Abdominal Pain Positive: Myalgia, Edema - bilateral , Other - states bilateral leg pain Positive: Headache, Weakness, Syncope - states 4 episodes, longest one lasting 3 hours All Other Systems Reviewed And Are Negative: Yes Physical Exam - Summary Physical Exam Summary: General: Well-developed, Well-nourished female. No acute distress. Mildly agitated, difficulty sitting still, constant movement HEENT: Normocephalic, Atraumatic. Eyes: Conjuctiva normal, PERRL. Ears: TMs within normal limits. Nares: (-) discharge, (-) erythema. Oropharynx: Clear, mucous membranes moist, (-) exudates. Neck: Soft, FROM, (-) lymphadenopathy, (-) thyromegaly, (-) JVD. Cardiovascular: Normal sinus rhythm, (-) murmur. Lungs: Clear to auscultation bilaterally (-) wheezes, (-) rales, (-) rhonchi. Abdomen: Soft, non-tender, non-distended, (-) organomegaly, normal bowel sounds. Back: (-) CVA tenderness Extremities: No edema. Skin: Warm, dry, (-) rash. Numerous excoriated open wounds over her arms and back Neuro: Alert and oriented x3, no focal deficits. Psychiatric: Mood normal, mildly anxious Triage Information Reviewed: Yes Vital Signs On Initial Exam: Initial Vitals Temp Pulse Resp BP Pulse Ox 98.2 F 119 16 132/79 99 06/23/19 18:17 06/23/19 18:17 06/23/19 18:17 06/23/19 18:17 06/23/19 18:17 Vital Signs Reviewed: Yes - [place] Coma Scale Best Eye Response: 4 - Spontaneous Best Motor Response: 6 - Obeys Commands Best Verbal Response: 5 - Oriented Coma Scale Total: 15 Procedures - Sedation Patient Received Moderate/Deep Sedation with Procedure: No Diagnostics - Vital Signs Vital Signs Temp Pulse Resp BP Pulse Ox 06/23/19 20:15 98.6 F 114 18 117/53 97 06/23/19 18:17 98.2 F 119 16 132/79 99 - Laboratory Lab Results: Lab Results 06/23/19 06/23/19 06/23/19 Range/Units 22:34 22:34 22:34 WBC 8.0 (3.5-10.8) 10^3/uL RBC 4.42 (3.70-4.87) 10^6 /uL Hgb 11.6 L (12.0-16.0) g/dL Hct 35 (35-47) % MCV 79 L (80-97) fL MCH 26 L (27-31) pg MCHC 33 (31-36) g/dL RDW 15 (10-15) % Plt Count 393 (150-450) 10^3/uL MPV 7.3 L (7.4-10.4) fL Neut % (Auto) 49.5 % Lymph % (Auto) 35.7 % [place] % (Auto) 11.9 % Eos % (Auto) 2.1 % Baso % (Auto) 0.8 % Absolute Neuts (auto) 4.0 (1.5-7.7) 10^3/ul Absolute Lymphs (auto) 2.9 (1.0-4.8) 10^3/ul Absolute Monos (auto) 0.9 H (0-0.8) 10^3/ul Absolute Eos (auto) 0.2 (0-0.6) 10^3/ul Absolute Basos (auto) 0.1 (0-0.2) 10^3/ul Absolute Nucleated RBC 0.0 10^3/ul Nucleated RBC % 0.1 INR (Anticoag Therapy) 1.09 (0.82-1.09) Sodium 136 (135-145) mmol/L Potassium 3.2 L (3.5-5.0) mmol/L Chloride 101 (101-111) mmol/L Carbon Dioxide 25 (22-32) mmol/L Anion Gap 10 (2-11) mmol/L BUN 13 (6-24) mg/dL Creatinine 0.76 (0.51-0.95) mg/dL Est GFR ( Amer) 106.7 (>60) Est GFR (Non-Af Amer) 88.2 (>60) BUN/Creatinine Ratio 17.1 (8-20) Glucose 107 H (70-100) mg/dL Lactic Acid (0.5-2.0) mmol/L Calcium 9.1 (8.6-10.3) mg/dL Magnesium 1.6 L (1.9-2.7) mg/dL Total Bilirubin 0.40 (0.2-1.0) mg/dL AST 162 H (13-39) U/L ALT 114 H (7-52) U/L Alkaline Phosphatase 87 (34-104) U/L Troponin I 0.00 (<0.03) ng/mL B-Natriuretic Peptide (<=100) pg/mL Total Protein 7.1 (6.4-8.9) g/dL Albumin 4.1 (3.2-5.2) g/dL Globulin 3.0 (2-4) g/dL Albumin/Globulin Ratio 1.4 (1-3) TSH Pending Serum Alcohol Pending 06/23/19 06/23/19 Range/Units 22:34 22:34 WBC (3.5-10.8) 10^3/uL RBC (3.70-4.87) 10^6 /uL Hgb (12.0-16.0) g/dL Hct (35-47) % MCV (80-97) fL MCH (27-31) pg MCHC (31-36) g/dL RDW (10-15) % Plt Count (150-450) 10^3/uL MPV (7.4-10.4) fL Neut % (Auto) % Lymph % (Auto) % [place] % (Auto) % Eos % (Auto) % Baso % (Auto) % Absolute Neuts (auto) (1.5-7.7) 10^3/ul Absolute Lymphs (auto) (1.0-4.8) 10^3/ul Absolute Monos (auto) (0-0.8) 10^3/ul Absolute Eos (auto) (0-0.6) 10^3/ul Absolute Basos (auto) (0-0.2) 10^3/ul Absolute Nucleated RBC 10^3/ul Nucleated RBC % INR (Anticoag Therapy) (0.82-1.09) Sodium (135-145) mmol/L Potassium (3.5-5.0) mmol/L Chloride (101-111) mmol/L Carbon Dioxide (22-32) mmol/L Anion Gap (2-11) mmol/L BUN (6-24) mg/dL Creatinine (0.51-0.95) mg/dL Est GFR ( Amer) (>60) Est GFR (Non-Af Amer) (>60) BUN/Creatinine Ratio (8-20) Glucose (70-100) mg/dL Lactic Acid 0.9 (0.5-2.0) mmol/L Calcium (8.6-10.3) mg/dL Magnesium (1.9-2.7) mg/dL Total Bilirubin (0.2-1.0) mg/dL AST (13-39) U/L ALT (7-52) U/L Alkaline Phosphatase (34-104) U/L Troponin I (<0.03) ng/mL B-Natriuretic Peptide 23 (<=100) pg/mL Total Protein (6.4-8.9) g/dL Albumin (3.2-5.2) g/dL Globulin (2-4) g/dL Albumin/Globulin Ratio (1-3) TSH Serum Alcohol Result Diagrams: 06/23/19 22:34 06/23/19 22:34 Lab Statement: Any lab studies that have been ordered have been reviewed, and results considered in the medical decision making process. - Radiology CXR Radiology Interpretation Completed By: ED Physician Summary of Radiographic Findings: No evidence of pleural effusion or infiltrate. Pending offical review. - CT Brain CT CT Interpretation Completed By: Radiologist Summary of CT Findings: No acute intracranial pathology. ED physician has reveiwed this report. Re-Evaluation - Re-Evaluation First Eval Re-Evaluation Time: 01:37 Change: Improved Comment: I have discussed results with the patient and her syncope is resolved. Discussed symptoms that warrant immediate return to ED Course/Dx Course Of Treatment: 34-year-old female presents with multiple vague symptoms. She states she is concerned she is dehydrated. As discussing the muscle cramping. During her stay in the emergency room she was given 2 L of normal saline. Potassium and magnesium replacement. Prior to discharge she was requesting refills of her gabapentin because she has difficulty sleeping secondary to her muscle aches. Patient was given Atarax. Gabapentin was declined. Workup demonstrates no significant abnormalities otherwise. Patient discharged home. Follow up with PCP. She states she has an appointment on the . Follow-up sooner for any worsening symptoms. potassium chloride x 2. sodium chloride x 2. hydroxyzine - Diagnoses Provider Diagnoses: Syncope, Hypokalemia, Hypomagnesemia Discharge ED - Sign-Out/Discharge Documenting (check all that apply): Patient Departure - discharge - Discharge Plan Condition: Stable Disposition: HOME Prescriptions: Magnesium Chloride EC TAB* [Slow Mag EC TAB*] 64 mg PO DAILY #5 tab.ec Potassium Chlor TAB* [Klor Con ER TAB*] 20 meq PO BID #10 tab.er Patient Education Materials: Hypokalemia (ED), Syncope (ED), Methamphetamine Abuse (ED), Hypomagnesemia (ED) Referrals: [facility] [Outside] - 2 Days Additional Instructions: PLEASE RETURN TO THE EMERGENCY DEPARTMENT FOR ANY NEW OR WORSENING SYMPTOMS. PLEASE FOLLOW UP WITH THE [facility] IN 1-3 DAYS TO BE GIVEN A PRIMARY CARE PHYSICIAN. - Billing Disposition and Condition Condition: STABLE Disposition: Home - Attestation Statements Document Initiated by Scribe: Yes Documenting Scribe: Mo Yoon Provider For Whom Noble is Documenting (Include Credential): Lizzette Arndt MD Scribe Attestation: Mo Paula, scribed for Lizzette Arndt MD on 06/24/19 at 0430. Scribe Documentation Reviewed: Yes Provider Attestation: The documentation as recorded by the Mo monge accurately reflects the service I personally performed and the decisions made by , Lizzette Arndt MD Status of Scribe Document: Viewed
[2019-06-23 23:19] LABS: Alcohol < 10 mg/dL (<10)
[2019-06-23 23:34] LABS: TSH (Thyroid Stimulating Horm) 4.45 mcIU/mL (0.34-5.60)
[2019-06-23] MEDS: hydrOXYzine HCL TAB* 50 MG PO ONE (23:45)
[2019-06-24 00:51] LABS: Urine Appearance Cloudy; Urine Bilirubin Negative (Negative); Urine Blood 1+ (Negative); Urine Color Yellow; Urine Glucose Negative (Negative); Urine Ketones 1+ (Negative); Urine Nitrite Negative (Negative); Urine Protein 1+(30 mg/dL) (Negative); Urine Specific Gravity 1.026 (1.010-1.030); Urine Urobilinogen Negative (Negative)
[2019-06-24] MEDS: Potassium Chlor TAB* 20 MEQ TAB.ER PO ONE ×2 (00:52→01:31)
[2019-06-24 00:55] LABS: Urine Bacteria Absent (Absent); Urine Red Blood Cell 3+(>10/hpf) (Absent); Urine Squamous Epithelial Cell Present (Absent); Urine White Blood Cell Trace(0-5/hpf) (Absent)
[2019-06-24 01:12] LABS: Urine Benzodiazepine Screen None Detected (None Detect); Urine Opiates Screen None Detected (None Detect)
[2019-06-24] MEDS: Magnesium Chloride EC TAB* 64 MG PO ONE (01:30)
[2019-06-24 01:53] VITALS: BP 113/57
== END 2019-06-24 01:50 | disposition home or self-care (01) ==
LOC: ED 18:14
DX: R55 Syncope and collapse (principal); E87.6 Hypokalemia; E83.42 Hypomagnesemia; F90.9 Attention-deficit hyperactivity disorder, unspecified type; F32.9 Major depressive disorder, single episode, unspecified; Z79.899 Other long term (current) drug therapy
CPT/HCPCS: 36415; 70450; 71045; 80053; 80307; 80320; 81003; 81015; 83605; 83735; 83880; 84443; 84484; 85025; 85610; 87086; 93005; 96360; 96361; 99283; A9270-GY; G0480

== ENCOUNTER 2020-12-27 01:44 | Inpatient (IN) ==
[2020-12-27] MEDS: Nicotine GUM 4MG FRUIT FLAVOR PO PRN ×8 (02:34→21:12)
[2020-12-27 02:41] LABS: ABS Lymphocytes 2.6 10^3/ul (1.0-4.8); ABS Monocytes 0.6 10^3/ul (0-0.8); ABS Neutrophils 9.5 10^3/ul (1.5-7.7); Eosinophil % 0.3 %; Hematocrit 38 % (35-47); Hemoglobin 12.5 g/dL (12.0-16.0); Lymphocyte % 20.2 %; Mean Corpuscular HGB Conc 33 g/dL (31-36); Mean Corpuscular Hemoglobin 26 pg (27-31); Mean Corpuscular Volume 80 fL (80-97); Mean Platelet Volume 6.8 fL (7.4-10.4); Platelet Count 344 10^3/uL (150-450); Red Blood Count 4.72 10^6 /uL (3.70-4.87); Red Cell Distribution Width 14 % (10-15); White Blood Count 12.7 10^3/uL (3.5-10.8)
[2020-12-27] MEDS ORDERED: Buprenorp/Nalox 8-2 MG FILM SL FILM ONE (02:42)
[2020-12-27 02:57] LABS: ALT 31 U/L (7-52); AST 27 U/L (13-39); Albumin 4.6 g/dL (3.2-5.2); Albumin/Globulin Ratio 1.5 (1-3); Alkaline Phosphatase 81 U/L (35-149); Anion Gap 11 mmol/L (2-11); Blood Urea Nitrogen 13 mg/dL (6-24); CO2 Carbon Dioxide 25 mmol/L (22-32); Chloride 100 mmol/L (101-111); EGFR African American 93.2 (>60); Globulin 3.1 g/dL (2-4); Glucose 109 mg/dL (70-100); Potassium 3.9 mmol/L (3.5-5.0); Sodium 136 mmol/L (135-145); Total Protein 7.7 g/dL (6.4-8.9)
[2020-12-27 03:04] LABS: HCG Pregnancy < 0.60 mIU/mL
[2020-12-27 04:15] LABS: Acetaminophen < 15 mcg/mL; Alcohol, S 239 mg/dL (<10); Salicylate < 2.50 mg/dL (<30)
[2020-12-27 04:29] LABS: TSH Ultra Thyroid Stim Horm 8.76 mcIU/mL (0.34-5.60)
[2020-12-27 05:36] LABS: Urine Appearance Cloudy; Urine Bilirubin Negative (Negative); Urine Blood 3+ (Negative); Urine Color Yellow; Urine Glucose Negative (Negative); Urine Ketones Negative (Negative); Urine Nitrite Negative (Negative); Urine Protein 1+(30 mg/dL) (Negative); Urine Urobilinogen Negative (Negative)
[2020-12-27 05:41] LABS: Urine Bacteria Absent (Absent); Urine Red Blood Cell 2+(6-10/hpf) (Absent); Urine Squamous Epithelial Cell Present (Absent); Urine White Blood Cell Trace(0-5/hpf) (Absent)
[2020-12-27 05:46] LABS: Urine Benzodiazepine Screen None Detected (None Detect); Urine Cannabinoids Screen Presumptive Positive (None Detect); Urine Opiates Screen None Detected (None Detect)
[2020-12-27 05:58] LABS: T4, Total 7.49 mcg/dL (6.09-12.23)
[2020-12-27 06:04] LABS: Free T4 0.93 ng/dL (0.61-1.12)
[2020-12-27] MEDS ORDERED: Diazepam INJ CARPUJECT 5 MG/ML IV ONE ×3 (08:36→10:12)
[2020-12-27] MEDS ORDERED: Lactated Ringers 1000 ml BAG 1,000 ML IV ONE (08:38)
[2020-12-27] MEDS ORDERED: Thiamine 100 MG/ML 2 ml VIAL 100 MG, Folic Acid IV 1 MG, Multiple Vitamin IV ADULT 10 M... IV ONE (09:00)
[2020-12-27] MEDS ORDERED: Ondansetron 4 mg VIAL 2 MG/ML 2 ml VIAL IV PRN (10:08)
[2020-12-27] MEDS ORDERED: Al Hydrox/Mg Hydrox/Simet LIQ 30 ML UDC PO PRN (10:08)
[2020-12-27] MEDS ORDERED: Lorazepam PYXIS KEY ONE ×3 (16:36→21:08)
[2020-12-27] MEDS: LORazepam 2 mg VIAL 1 ml IV PUSH SCH ×3 (16:42→21:13)
[2020-12-27] MEDS ORDERED: Buprenorp/Nalox 8-2 MG SL TAB SL SCH (21:00)
[2020-12-27] MEDS ORDERED: Buprenorp/Nalox 4-1 MG FILM SL FILM ONE (22:00)
[2020-12-28] MEDS: Nicotine GUM 4MG FRUIT FLAVOR PO PRN ×5 (03:38→18:09)
[2020-12-28] MEDS: Buprenorp/Nalox 8-2 MG SL TAB SL SCH ×3 (08:00→21:06)
[2020-12-28] MEDS: Multivitamins/Minerals TAB PO SCH (08:01)
[2020-12-28 08:33] LABS: ABS Eosinophils 0.1 10^3/ul (0-0.6); ABS Monocytes 0.4 10^3/ul (0-0.8); ABS Neutrophils 3.2 10^3/ul (1.5-7.7); Hematocrit 35 % (35-47); Hemoglobin 11.4 g/dL (12.0-16.0); Lymphocyte % 35.7 %; Mean Corpuscular HGB Conc 33 g/dL (31-36); Mean Corpuscular Hemoglobin 27 pg (27-31); Mean Corpuscular Volume 81 fL (80-97); Mean Platelet Volume 7.1 fL (7.4-10.4); Platelet Count 272 10^3/uL (150-450); Red Blood Count 4.26 10^6 /uL (3.70-4.87); Red Cell Distribution Width 14 % (10-15); White Blood Count 5.7 10^3/uL (3.5-10.8)
[2020-12-28 08:52] LABS: Calcium 7.9 mg/dL (8.6-10.3); Magnesium 2.1 mg/dL (1.9-2.7); Potassium 4.1 mmol/L (3.5-5.0)
[2020-12-28 08:58] LABS: EGFR African American 114.7 (>60); EGFR Non-African American 94.8 (>60)
[2020-12-28] MEDS ORDERED: Lorazepam PYXIS KEY PRN (10:02)
[2020-12-28] MEDS: LORazepam 2 mg VIAL 1 ml IV PUSH SCH ×2 (10:07→18:08)
[2020-12-29] MEDS: Multivitamins/Minerals TAB PO SCH (07:41)
[2020-12-29] MEDS: Buprenorp/Nalox 8-2 MG SL TAB SL SCH ×2 (07:44→21:04)
[2020-12-29] MEDS: Nicotine GUM 4MG FRUIT FLAVOR PO PRN ×4 (07:51→21:20)
[2020-12-29] MEDS: LORazepam 2 mg VIAL 1 ml IV PUSH SCH (12:07)
[2020-12-30 08:19] LABS: HDL Cholesterol 94.8 mg/dL
[2020-12-30] MEDS: Buprenorp/Nalox 8-2 MG SL TAB SL SCH ×2 (08:45→20:59)
[2020-12-30] MEDS: Multivitamins/Minerals TAB PO SCH (08:46)
[2020-12-30] MEDS: Nicotine GUM 4MG FRUIT FLAVOR PO PRN ×4 (09:19→21:01)
[2020-12-31] MEDS: Nicotine GUM 4MG FRUIT FLAVOR PO PRN ×6 (04:16→20:43)
[2020-12-31] MEDS: Buprenorp/Nalox 8-2 MG SL TAB SL SCH ×2 (08:26→20:28)
[2020-12-31] MEDS: Multivitamins/Minerals TAB PO SCH (08:26)
[2021-01-01] MEDS: Buprenorp/Nalox 8-2 MG SL TAB SL SCH ×2 (08:59→20:12)
[2021-01-01] MEDS: Multivitamins/Minerals TAB PO SCH (08:59)
[2021-01-01] MEDS: Nicotine GUM 4MG FRUIT FLAVOR PO PRN ×2 (09:09→19:48)
[2021-01-02] MEDS: Multivitamins/Minerals TAB PO SCH (08:56)
[2021-01-02] MEDS: Buprenorp/Nalox 8-2 MG SL TAB SL SCH ×2 (08:57→20:21)
[2021-01-02] MEDS: Nicotine GUM 4MG FRUIT FLAVOR PO PRN ×3 (09:05→19:20)
[2021-01-03] MEDS: Multivitamins/Minerals TAB PO SCH (08:34)
[2021-01-03] MEDS: Buprenorp/Nalox 8-2 MG SL TAB SL SCH ×2 (08:35→20:37)
[2021-01-03] MEDS: Nicotine GUM 4MG FRUIT FLAVOR PO PRN ×5 (08:54→20:33)
[2021-01-04] MEDS: Multivitamins/Minerals TAB PO SCH (09:15)
[2021-01-04] MEDS: Buprenorp/Nalox 8-2 MG SL TAB SL SCH ×2 (09:17→20:17)
[2021-01-04] MEDS: Nicotine GUM 4MG FRUIT FLAVOR PO PRN ×4 (09:25→20:42)
[2021-01-05] MEDS: Multivitamins/Minerals TAB PO SCH (08:32)
[2021-01-05] MEDS: Buprenorp/Nalox 8-2 MG SL TAB SL SCH ×2 (08:33→20:19)
[2021-01-05] MEDS: Nicotine GUM 4MG FRUIT FLAVOR PO PRN ×5 (08:34→20:41)
[2021-01-06] MEDS: Buprenorp/Nalox 8-2 MG SL TAB SL SCH ×2 (10:56→21:07)
[2021-01-06] MEDS: Multivitamins/Minerals TAB PO SCH (10:57)
[2021-01-06] MEDS: Nicotine GUM 4MG FRUIT FLAVOR PO PRN ×5 (11:04→21:16)
[2021-01-07] MEDS: Buprenorp/Nalox 8-2 MG SL TAB SL SCH ×2 (08:49→20:01)
[2021-01-07] MEDS: Multivitamins/Minerals TAB PO SCH (08:49)
[2021-01-07] MEDS: Nicotine GUM 4MG FRUIT FLAVOR PO PRN ×5 (08:58→20:25)
[2021-01-07] MEDS: Nicotine PATCH 14 MG/24 HR PATCH TRANSDERM SCH (13:03)
[2021-01-08] MEDS: Multivitamins/Minerals TAB PO SCH (09:04)
[2021-01-08] MEDS: Nicotine PATCH 14 MG/24 HR PATCH TRANSDERM SCH (09:05)
[2021-01-08] MEDS: Buprenorp/Nalox 8-2 MG SL TAB SL SCH ×2 (09:05→20:53)
[2021-01-08] MEDS: Nicotine GUM 4MG FRUIT FLAVOR PO PRN ×5 (09:09→22:21)
[2021-01-09] MEDS: Multivitamins/Minerals TAB PO SCH (08:40)
[2021-01-09] MEDS: Nicotine PATCH 14 MG/24 HR PATCH TRANSDERM SCH (08:42)
[2021-01-09] MEDS: Nicotine GUM 4MG FRUIT FLAVOR PO PRN ×5 (08:44→22:10)
[2021-01-09] MEDS: Buprenorp/Nalox 8-2 MG SL TAB SL SCH ×2 (08:46→22:01)
[2021-01-10] MEDS: Multivitamins/Minerals TAB PO SCH (08:27)
[2021-01-10] MEDS: Buprenorp/Nalox 8-2 MG SL TAB SL SCH ×2 (08:27→20:16)
[2021-01-10] MEDS: Nicotine PATCH 14 MG/24 HR PATCH TRANSDERM SCH (08:40)
[2021-01-10] MEDS: Nicotine GUM 4MG FRUIT FLAVOR PO PRN ×5 (08:41→20:34)
[2021-01-11] MEDS: Nicotine PATCH 14 MG/24 HR PATCH TRANSDERM SCH (08:50)
[2021-01-11] MEDS: Multivitamins/Minerals TAB PO SCH (08:51)
[2021-01-11] MEDS: Buprenorp/Nalox 8-2 MG SL TAB SL SCH ×2 (08:51→20:29)
[2021-01-11] MEDS: Nicotine GUM 4MG FRUIT FLAVOR PO PRN ×5 (08:54→23:22)
[2021-01-12] MEDS: Nicotine PATCH 14 MG/24 HR PATCH TRANSDERM SCH (07:22)
[2021-01-12] MEDS: Buprenorp/Nalox 8-2 MG SL TAB SL SCH (07:22)
[2021-01-12] MEDS: Multivitamins/Minerals TAB PO SCH (07:23)
[2021-01-12] MEDS: Nicotine GUM 4MG FRUIT FLAVOR PO PRN (07:24)
[2021-01-12 09:20] VITALS: BP 104/62
== END 2021-01-12 09:12 | disposition home or self-care (01) ==
LOC: ED 01:44 → MED 11:41 → BSU 12-29 17:35
PROVIDERS: ADMIT Hospitalist; ATTEND Psychiatry & Neurology Psychiatry

== ENCOUNTER 2021-01-25 19:42 | Inpatient (IN) ==
[2021-01-25 20:32] LABS: Urine Appearance Cloudy; Urine Bilirubin Negative (Negative); Urine Blood 2+ (Negative); Urine Color Yellow; Urine Glucose Negative (Negative); Urine Ketones Negative (Negative); Urine Nitrite Negative (Negative); Urine Protein Negative (Negative); Urine Specific Gravity 1.013 (1.002-1.030); Urine Urobilinogen Negative (Negative)
[2021-01-25 20:40] LABS: Urine Bacteria Absent (Absent); Urine Red Blood Cell Trace(0-2/hpf) (Absent); Urine Squamous Epithelial Cell Present (Absent); Urine White Blood Cell Trace(0-5/hpf) (Absent)
[2021-01-25 20:48] LABS: Urine Benzodiazepine Screen None Detected (None Detect); Urine Cannabinoids Screen None Detected (None Detect); Urine Opiates Screen None Detected (None Detect)
[2021-01-25 22:11] LABS: ABS Eosinophils 0.2 10^3/ul (0-0.6); ABS Lymphocytes 2.8 10^3/ul (1.0-4.8); ABS Monocytes 0.4 10^3/ul (0-0.8); ABS Neutrophils 2.6 10^3/ul (1.5-7.7); Eosinophil % 2.6 %; Hematocrit 42 % (35-47); Hemoglobin 13.8 g/dL (12.0-16.0); Lymphocyte % 47.3 %; Mean Corpuscular HGB Conc 33 g/dL (31-36); Mean Corpuscular Hemoglobin 26 pg (27-31); Mean Corpuscular Volume 80 fL (80-97); Mean Platelet Volume 7.6 fL (7.4-10.4); Nucleated Red Blood Cells % 0.1; Platelet Count 298 10^3/uL (150-450); Red Blood Count 5.24 10^6 /uL (3.70-4.87); Red Cell Distribution Width 14 % (10-15)
[2021-01-25 22:26] LABS: Acetaminophen < 15 mcg/mL; Alcohol, S 155 mg/dL (<10); Salicylate < 2.50 mg/dL (<30)
[2021-01-25 22:27] LABS: ALT 36 U/L (7-52); AST 28 U/L (13-39); Albumin 4.6 g/dL (3.2-5.2); Albumin/Globulin Ratio 1.4 (1-3); Alkaline Phosphatase 84 U/L (35-149); Anion Gap 10 mmol/L (2-11); Blood Urea Nitrogen 13 mg/dL (6-24); CO2 Carbon Dioxide 27 mmol/L (22-32); Calcium 9.4 mg/dL (8.6-10.3); Chloride 99 mmol/L (101-111); EGFR African American 122.7 (>60); EGFR Non-African American 101.4 (>60); Globulin 3.4 g/dL (2-4); Glucose 88 mg/dL (70-100); Potassium 4.1 mmol/L (3.5-5.0); Sodium 136 mmol/L (135-145)
[2021-01-25 22:34] LABS: HCG Pregnancy < 0.60 mIU/mL
[2021-01-25 22:41] LABS: TSH Ultra Thyroid Stim Horm 6.83 mcIU/mL (0.34-5.60)
[2021-01-26] MEDS ORDERED: Al Hydrox/Mg Hydrox/Simet LIQ 30 ML UDC PO PRN (17:56)
[2021-01-26] MEDS ORDERED: Thiamine 100 MG/ML 2 ml VIAL (200 mg) IM ONE (20:00)
[2021-01-26] MEDS: Multivitamins/Minerals TAB PO SCH (21:11)
[2021-01-26] MEDS: Buprenorp/Nalox 8-2 MG SL TAB SL SCH (21:11)
[2021-01-27] MEDS: Multivitamins/Minerals TAB PO SCH (08:28)
[2021-01-27] MEDS: Buprenorp/Nalox 8-2 MG SL TAB SL SCH ×2 (08:28→20:39)
[2021-01-27] MEDS: Nicotine PATCH 14 MG/24 HR PATCH TRANSDERM SCH (08:28)
[2021-01-27] MEDS ORDERED: Vitamin THERAPEUTIC TAB PO SCH (09:00)
[2021-01-27] MEDS: Nicotine GUM 4MG FRUIT FLAVOR PO PRN ×3 (11:06→21:19)
[2021-01-28] MEDS: Nicotine PATCH 14 MG/24 HR PATCH TRANSDERM SCH (09:34)
[2021-01-28] MEDS: Multivitamins/Minerals TAB PO SCH (09:35)
[2021-01-28] MEDS: Buprenorp/Nalox 8-2 MG SL TAB SL SCH ×2 (09:36→21:06)
[2021-01-28] MEDS: Nicotine GUM 4MG FRUIT FLAVOR PO PRN ×4 (09:38→21:20)
[2021-01-29] MEDS: Multivitamins/Minerals TAB PO SCH (08:54)
[2021-01-29] MEDS: Buprenorp/Nalox 8-2 MG SL TAB SL SCH ×2 (08:54→20:21)
[2021-01-29] MEDS: Nicotine PATCH 14 MG/24 HR PATCH TRANSDERM SCH (08:57)
[2021-01-29] MEDS: Nicotine GUM 4MG FRUIT FLAVOR PO PRN ×4 (09:05→20:23)
[2021-01-30] MEDS: Nicotine GUM 4MG FRUIT FLAVOR PO PRN ×4 (08:30→21:00)
[2021-01-30] MEDS: Nicotine PATCH 14 MG/24 HR PATCH TRANSDERM SCH (08:30)
[2021-01-30] MEDS: Buprenorp/Nalox 8-2 MG SL TAB SL SCH ×2 (08:30→20:03)
[2021-01-30] MEDS: Multivitamins/Minerals TAB PO SCH (08:31)
[2021-01-30] MEDS ORDERED: Tuberculin PPD* 5 TU/DOSE/0.1 ML INTRADERM ONE ×2 (12:00→13:00)
[2021-01-30] MEDS ORDERED: PPD test dose 5 TU/0.1 ML TEST (*USE PPD ORDER SET*) INTRADERM SCH (12:00)
[2021-01-31] MEDS: Nicotine PATCH 14 MG/24 HR PATCH TRANSDERM SCH (08:53)
[2021-01-31] MEDS: Buprenorp/Nalox 8-2 MG SL TAB SL SCH ×2 (08:54→20:10)
[2021-01-31] MEDS: Nicotine GUM 4MG FRUIT FLAVOR PO PRN ×4 (08:54→20:10)
[2021-01-31] MEDS: Multivitamins/Minerals TAB PO SCH (08:54)
[2021-02-01] MEDS: Multivitamins/Minerals TAB PO SCH (08:36)
[2021-02-01] MEDS: Nicotine GUM 4MG FRUIT FLAVOR PO PRN ×4 (08:39→20:34)
[2021-02-01] MEDS: Nicotine PATCH 14 MG/24 HR PATCH TRANSDERM SCH (08:39)
[2021-02-01] MEDS: Buprenorp/Nalox 8-2 MG SL TAB SL SCH ×2 (08:40→20:21)
[2021-02-02] MEDS ORDERED: PPD Reading 48-72 HRS NOTE SCH (06:00)
[2021-02-02] MEDS: Buprenorp/Nalox 8-2 MG SL TAB SL SCH ×2 (08:57→20:19)
[2021-02-02] MEDS: Nicotine GUM 4MG FRUIT FLAVOR PO PRN ×5 (08:57→19:03)
[2021-02-02] MEDS: Multivitamins/Minerals TAB PO SCH (08:57)
[2021-02-02] MEDS: Nicotine PATCH 14 MG/24 HR PATCH TRANSDERM SCH (08:58)
[2021-02-03] MEDS: Nicotine PATCH 14 MG/24 HR PATCH TRANSDERM SCH (08:59)
[2021-02-03] MEDS: Multivitamins/Minerals TAB PO SCH (09:00)
[2021-02-03] MEDS: Buprenorp/Nalox 8-2 MG SL TAB SL SCH ×2 (09:01→19:59)
[2021-02-03] MEDS: Nicotine GUM 4MG FRUIT FLAVOR PO PRN ×5 (09:01→19:59)
[2021-02-04] MEDS: Multivitamins/Minerals TAB PO SCH (08:27)
[2021-02-04] MEDS: Buprenorp/Nalox 8-2 MG SL TAB SL SCH ×2 (08:30→21:20)
[2021-02-04] MEDS: Nicotine PATCH 14 MG/24 HR PATCH TRANSDERM SCH (08:30)
[2021-02-04] MEDS: Nicotine GUM 4MG FRUIT FLAVOR PO PRN ×5 (08:35→22:10)
[2021-02-05] MEDS: Nicotine PATCH 14 MG/24 HR PATCH TRANSDERM SCH (08:26)
[2021-02-05] MEDS: Nicotine GUM 4MG FRUIT FLAVOR PO PRN ×5 (08:26→19:53)
[2021-02-05] MEDS: Buprenorp/Nalox 8-2 MG SL TAB SL SCH ×2 (08:26→19:53)
[2021-02-05] MEDS: Multivitamins/Minerals TAB PO SCH (08:27)
[2021-02-06] MEDS: Buprenorp/Nalox 8-2 MG SL TAB SL SCH ×2 (08:27→20:18)
[2021-02-06] MEDS: Nicotine PATCH 14 MG/24 HR PATCH TRANSDERM SCH (08:28)
[2021-02-06] MEDS: Nicotine GUM 4MG FRUIT FLAVOR PO PRN ×6 (08:31→22:39)
[2021-02-06] MEDS: Multivitamins/Minerals TAB PO SCH (09:22)
[2021-02-06] MEDS ORDERED: Nicotine PATCH 14 MG/24 HR PATCH ONE (10:50)
[2021-02-06] MEDS ORDERED: Nicotine PATCH 14 MG/24 HR PATCH TRANSDERM ONE (11:36)
[2021-02-07] MEDS: Nicotine PATCH 14 MG/24 HR PATCH TRANSDERM SCH (08:00)
[2021-02-07] MEDS: Buprenorp/Nalox 8-2 MG SL TAB SL SCH ×2 (08:00→20:26)
[2021-02-07] MEDS: Nicotine GUM 4MG FRUIT FLAVOR PO PRN ×4 (08:00→20:28)
[2021-02-07] MEDS: Multivitamins/Minerals TAB PO SCH (08:01)
[2021-02-07] MEDS: Erythromycin OPTH OINT APPLIC OINT BOTH EYES SCH ×2 (16:10→20:26)
[2021-02-08 08:06] VITALS: BP 107/63
[2021-02-08] MEDS: Buprenorp/Nalox 8-2 MG SL TAB SL SCH (08:25)
[2021-02-08] MEDS: Nicotine PATCH 14 MG/24 HR PATCH TRANSDERM SCH (08:25)
[2021-02-08] MEDS: Nicotine GUM 4MG FRUIT FLAVOR PO PRN (08:30)
[2021-02-08] MEDS: Erythromycin OPTH OINT APPLIC OINT BOTH EYES SCH (08:53)
[2021-02-08] MEDS: Multivitamins/Minerals TAB PO SCH (09:37)
== END 2021-02-08 12:00 | DRG 755 ==
LOC: ED 19:42 → BSU 01-26 01:37 → ED 01-26 08:55 → BSU 01-29 22:30
PROVIDERS: ADMIT Psychiatry & Neurology Psychiatry; ATTEND Psychiatry & Neurology Psychiatry

== ENCOUNTER 2021-04-02 21:41 | Inpatient (IN) ==
[2021-04-02 23:30] LABS: Hematocrit 37 % (35-47); Hemoglobin 12.1 g/dL (12.0-16.0); Mean Corpuscular HGB Conc 33 g/dL (31-36); Mean Corpuscular Hemoglobin 26 pg (27-31); Mean Corpuscular Volume 79 fL (80-97); Mean Platelet Volume 7.5 fL (7.4-10.4); Platelet Count 306 10^3/uL (150-450); Red Cell Distribution Width 15 % (10-15); White Blood Count 6.2 10^3/uL (3.5-10.8)
[2021-04-02 23:42] LABS: ALT 59 U/L (7-52); AST 47 U/L (13-39); Albumin 4.1 g/dL (3.2-5.2); Albumin/Globulin Ratio 1.4 (1-3); Alkaline Phosphatase 98 U/L (35-149); Anion Gap 9 mmol/L (2-11); Blood Urea Nitrogen 10 mg/dL (6-24); CO2 Carbon Dioxide 31 mmol/L (22-32); Calcium 8.3 mg/dL (8.6-10.3); Chloride 101 mmol/L (101-111); EGFR African American 107.7 (>60); Globulin 2.9 g/dL (2-4); Glucose 94 mg/dL (70-100); Potassium 4.4 mmol/L (3.5-5.0); Sodium 141 mmol/L (135-145)
[2021-04-02 23:48] LABS: ABS Eosinophils 0.1 10^3/ul (0-0.6); ABS Lymphocytes 3.5 10^3/ul (1.0-4.8); ABS Monocytes 0.5 10^3/ul (0-0.8); ABS Neutrophils 2.1 10^3/ul (1.5-7.7); Eosinophil % 1.9 %; Lymphocyte % 55.7 %; Nucleated Red Blood Cells % 0.1
[2021-04-03 00:10] LABS: Acetaminophen < 15 mcg/mL; Alcohol, S 297 mg/dL (<13); Salicylate < 2.50 mg/dL (<30)
[2021-04-03 00:26] LABS: TSH Ultra Thyroid Stim Horm 5.32 mcIU/mL (0.34-5.60)
[2021-04-03 01:32] LABS: Urine Appearance Clear; Urine Bilirubin Negative (Negative); Urine Blood 1+ (Negative); Urine Color Straw; Urine Glucose Negative (Negative); Urine Ketones Negative (Negative); Urine Nitrite Negative (Negative); Urine Protein Negative (Negative); Urine Specific Gravity 1.006 (1.002-1.030); Urine Urobilinogen Negative (Negative)
[2021-04-03 01:36] LABS: Urine Bacteria Absent (Absent); Urine Red Blood Cell Trace(0-2/hpf) (Absent); Urine Squamous Epithelial Cell Present (Absent); Urine White Blood Cell Trace(0-5/hpf) (Absent)
[2021-04-03 02:00] LABS: Urine Benzodiazepine Screen None Detected (None Detect); Urine Cannabinoids Screen None Detected (None Detect); Urine Opiates Screen None Detected (None Detect)
[2021-04-03] MEDS ORDERED: Lorazepam PYXIS KEY PRN (09:34)
[2021-04-03] MEDS ORDERED: LORazepam 2 mg VIAL 1 ml IV PUSH ONE (09:34)
[2021-04-03] MEDS ORDERED: Thiamine 100 MG/ML 2 ml VIAL 100 MG, Folic Acid IV 1 MG, Multiple Vitamin IV ADULT 10 M... IV ONE (09:34)
[2021-04-03] MEDS ORDERED: LORazepam 2 mg VIAL 1 ml IV PUSH SCH (11:00)
[2021-04-03] MEDS: Buprenorp/Nalox 8-2 MG FILM SL FILM SCH (21:32)
[2021-04-04] MEDS ORDERED: Multivitamins/Minerals TAB PO SCH (09:00)
[2021-04-04] MEDS: Multivitamins/Minerals TAB PO SCH (09:46)
[2021-04-04] MEDS: Buprenorp/Nalox 8-2 MG FILM SL FILM SCH ×2 (10:03→20:50)
[2021-04-05 06:18] LABS: Albumin 3.8 g/dL (3.2-5.2); Albumin/Globulin Ratio 1.5 (1-3); Calcium 8.7 mg/dL (8.6-10.3); EGFR African American 94.5 (>60); EGFR Non-African American 78.1 (>60); Globulin 2.6 g/dL (2-4); Potassium 3.9 mmol/L (3.5-5.0); Total Bilirubin 0.3 mg/dL (0.2-1.0); Total Protein 6.4 g/dL (6.4-8.9)
[2021-04-05] MEDS: Multivitamins/Minerals TAB PO SCH (08:44)
[2021-04-05] MEDS: Buprenorp/Nalox 8-2 MG FILM SL FILM SCH ×2 (08:44→20:39)
[2021-04-06 06:48] LABS: Albumin 3.7 g/dL (3.2-5.2); Albumin/Globulin Ratio 1.4 (1-3); Calcium 8.8 mg/dL (8.6-10.3); EGFR African American 104.5 (>60); EGFR Non-African American 86.3 (>60); Globulin 2.7 g/dL (2-4); Potassium 3.9 mmol/L (3.5-5.0); Total Bilirubin 0.4 mg/dL (0.2-1.0); Total Protein 6.4 g/dL (6.4-8.9)
[2021-04-06 08:40] LABS: % Iron Saturation 14 % (15-55); Iron 39 ug/dL (50-212); Total Iron Binding Capacity 274 mcg/dL (250-450); Transferrin 196 mg/dL (203-362); Unsaturated Iron Binding < 259 ug/dL
[2021-04-06] MEDS: Buprenorp/Nalox 8-2 MG FILM SL FILM SCH ×2 (08:48→21:35)
[2021-04-06] MEDS: Multivitamins/Minerals TAB PO SCH (08:48)
[2021-04-06 09:01] LABS: Ferritin 41.8 ng/mL (11-307)
[2021-04-07] MEDS ORDERED: Polyethylene Glycol 3350 17 GM PACKET PO PRN (09:04)
[2021-04-07] MEDS: Multivitamins/Minerals TAB PO SCH (09:53)
[2021-04-07] MEDS: Senna TAB 8.6 mg TAB PO PRN (09:57)
[2021-04-07] MEDS: Magnesium Hydroxide LIQ 30 ML UDC PO PRN (09:58)
[2021-04-07] MEDS: Buprenorp/Nalox 8-2 MG FILM SL FILM SCH ×2 (10:02→21:28)
[2021-04-08] MEDS: Multivitamins/Minerals TAB PO SCH (10:14)
[2021-04-08] MEDS: Buprenorp/Nalox 8-2 MG FILM SL FILM SCH ×2 (11:24→21:39)
[2021-04-09] MEDS: Buprenorp/Nalox 8-2 MG FILM SL FILM SCH ×2 (07:49→21:21)
[2021-04-09] MEDS: Multivitamins/Minerals TAB PO SCH (07:51)
[2021-04-09] MEDS ORDERED: Senna TAB 8.6 mg TAB PO ONE (21:05)
[2021-04-09] MEDS: Magnesium Hydroxide LIQ 30 ML UDC PO PRN (21:19)
[2021-04-10] MEDS: Buprenorp/Nalox 8-2 MG FILM SL FILM SCH ×2 (09:23→21:43)
[2021-04-10] MEDS: Multivitamins/Minerals TAB PO SCH (09:25)
[2021-04-10] MEDS ORDERED: NS 0.9% 1000 ml BAG 1,000 ML IV SCH (15:00)
[2021-04-10] MEDS ORDERED: Lactated Ringers 500 ml BAG 500 ML IV ONE (19:44)
[2021-04-10] MEDS: Senna TAB 8.6 mg TAB PO PRN (21:46)
[2021-04-11] MEDS: Buprenorp/Nalox 8-2 MG FILM SL FILM SCH (09:10)
[2021-04-11] MEDS: Multivitamins/Minerals TAB PO SCH (09:13)
[2021-04-11 11:42] VITALS: BP 101/61
== END 2021-04-11 16:22 | disposition home or self-care (01) | DRG 773 ==
LOC: ED 21:41 → MEDTELE 04-03 11:36 → SUATTDRO 04-03 11:36 → MEDTELE 04-03 15:09
PROVIDERS: ADMIT Hospitalist; ATTEND Hospitalist

== ENCOUNTER 2021-04-24 03:22 | Inpatient (IN) ==
[2021-04-24 04:47] LABS: Urine Appearance Clear; Urine Bilirubin Negative (Negative); Urine Blood 1+ (Negative); Urine Color Yellow; Urine Glucose Negative (Negative); Urine Ketones Negative (Negative); Urine Nitrite Negative (Negative); Urine Protein Negative (Negative); Urine Specific Gravity 1.011 (1.002-1.030); Urine Urobilinogen Negative (Negative)
[2021-04-24 04:55] LABS: Urine Bacteria Absent (Absent); Urine Red Blood Cell Absent (Absent); Urine Squamous Epithelial Cell Present (Absent); Urine White Blood Cell Trace(0-5/hpf) (Absent)
[2021-04-24 05:06] LABS: Urine Benzodiazepine Screen Presumptive Positive (None Detect); Urine Cannabinoids Screen None Detected (None Detect); Urine Opiates Screen None Detected (None Detect)
[2021-04-24 05:21] LABS: ABS Basophils 0.1 10^3/ul (0-0.2); ABS Eosinophils 0.2 10^3/ul (0-0.6); ABS Lymphocytes 2.6 10^3/ul (1.0-4.8); ABS Monocytes 0.4 10^3/ul (0-0.8); ABS Neutrophils 1.8 10^3/ul (1.5-7.7); Eosinophil % 4.6 %; Hematocrit 34 % (35-47); Lymphocyte % 50.4 %; Mean Corpuscular HGB Conc 32 g/dL (31-36); Mean Corpuscular Hemoglobin 26 pg (27-31); Mean Corpuscular Volume 81 fL (80-97); Mean Platelet Volume 7.9 fL (7.4-10.4); Nucleated Red Blood Cells % 0.1; Platelet Count 279 10^3/uL (150-450); Red Blood Count 4.26 10^6 /uL (3.70-4.87); Red Cell Distribution Width 16 % (10-15); White Blood Count 5.1 10^3/uL (3.5-10.8)
[2021-04-24 05:37] LABS: ALT 29 U/L (7-52); AST 25 U/L (13-39); Albumin 3.8 g/dL (3.2-5.2); Albumin/Globulin Ratio 1.4 (1-3); Alkaline Phosphatase 64 U/L (35-149); Anion Gap 9 mmol/L (2-11); Blood Urea Nitrogen 7 mg/dL (6-24); CO2 Carbon Dioxide 25 mmol/L (22-32); Calcium 8.8 mg/dL (8.6-10.3); Chloride 105 mmol/L (101-111); EGFR African American 107.7 (>60); Globulin 2.8 g/dL (2-4); Glucose 106 mg/dL (70-100); Potassium 3.5 mmol/L (3.5-5.0); Sodium 139 mmol/L (135-145); Total Protein 6.6 g/dL (6.4-8.9)
[2021-04-24 05:41] LABS: Acetaminophen < 15 mcg/mL; Alcohol, S 34 mg/dL (<13); Salicylate < 2.50 mg/dL (<30)
[2021-04-24 05:45] LABS: HCG Pregnancy < 0.60 mIU/mL
[2021-04-24 05:54] LABS: TSH Ultra Thyroid Stim Horm 3.77 mcIU/mL (0.34-5.60)
[2021-04-24] MEDS ORDERED: Al Hydrox/Mg Hydrox/Simet LIQ 30 ML UDC PO PRN (14:58)
[2021-04-24 18:58] LABS: Rapid COVID-19 Molecular Undetected (Undetected)
[2021-04-24] MEDS: Buprenorp/Nalox 8-2 MG FILM SL FILM SCH (21:39)
[2021-04-24] MEDS: Nicotine GUM 2MG FRUIT FLAVOR PO PRN (22:52)
[2021-04-25] MEDS: Nicotine PATCH 21 MG/24 HR PATCH TRANSDERM SCH (09:15)
[2021-04-25] MEDS: Multivitamins/Minerals TAB PO SCH (09:16)
[2021-04-25] MEDS: Buprenorp/Nalox 8-2 MG FILM SL FILM SCH ×2 (09:17→20:19)
[2021-04-25] MEDS ORDERED: Lorazepam PYXIS KEY PRN (11:19)
[2021-04-25] MEDS ORDERED: LORazepam 2 mg VIAL 1 ml IM SCH (12:00)
[2021-04-25] MEDS: Nicotine GUM 2MG FRUIT FLAVOR PO PRN ×2 (12:49→19:18)
[2021-04-26 08:03] LABS: HDL Cholesterol 63.7 mg/dL
[2021-04-26] MEDS: Nicotine GUM 2MG FRUIT FLAVOR PO PRN ×3 (08:33→20:28)
[2021-04-26] MEDS: Multivitamins/Minerals TAB PO SCH (08:33)
[2021-04-26] MEDS: Nicotine PATCH 21 MG/24 HR PATCH TRANSDERM SCH (08:34)
[2021-04-26] MEDS: Buprenorp/Nalox 8-2 MG FILM SL FILM SCH ×2 (08:35→20:19)
[2021-04-27] MEDS: Multivitamins/Minerals TAB PO SCH (08:32)
[2021-04-27] MEDS: Nicotine PATCH 21 MG/24 HR PATCH TRANSDERM SCH (08:33)
[2021-04-27] MEDS: Nicotine GUM 2MG FRUIT FLAVOR PO PRN ×3 (08:34→16:59)
[2021-04-27] MEDS: Buprenorp/Nalox 8-2 MG FILM SL FILM SCH ×2 (11:25→21:56)
[2021-04-28] MEDS: Nicotine PATCH 21 MG/24 HR PATCH TRANSDERM SCH (09:02)
[2021-04-28] MEDS: Multivitamins/Minerals TAB PO SCH (09:03)
[2021-04-28] MEDS: Buprenorp/Nalox 8-2 MG FILM SL FILM SCH ×2 (09:05→20:47)
[2021-04-28] MEDS: Nicotine GUM 2MG FRUIT FLAVOR PO PRN ×4 (09:05→20:54)
[2021-04-29] MEDS: Multivitamins/Minerals TAB PO SCH (08:43)
[2021-04-29] MEDS: Nicotine PATCH 21 MG/24 HR PATCH TRANSDERM SCH (08:45)
[2021-04-29] MEDS: Buprenorp/Nalox 8-2 MG FILM SL FILM SCH ×2 (08:46→20:18)
[2021-04-29] MEDS: Nicotine GUM 2MG FRUIT FLAVOR PO PRN ×4 (08:52→20:22)
[2021-04-30] MEDS: Buprenorp/Nalox 8-2 MG FILM SL FILM SCH (08:33)
[2021-04-30] MEDS: Nicotine PATCH 21 MG/24 HR PATCH TRANSDERM SCH (08:33)
[2021-04-30] MEDS: Multivitamins/Minerals TAB PO SCH (08:36)
[2021-04-30] MEDS: Nicotine GUM 2MG FRUIT FLAVOR PO PRN (08:40)
[2021-04-30 10:01] VITALS: BP 117/71
== END 2021-04-30 12:02 | DRG 775 ==
LOC: ED 03:22 → BSU 19:38
PROVIDERS: ADMIT Psychiatry & Neurology Psychiatry; ATTEND Psychiatry & Neurology Psychiatry

== ENCOUNTER 2021-08-29 15:14 | Inpatient (IN) ==
[2021-08-29] MEDS ORDERED: LORazepam 2 mg VIAL 1 ml IV PUSH ONE ×2 (16:08→19:22)
[2021-08-29] MEDS ORDERED: Lorazepam PYXIS KEY PRN ×3 (16:08→22:17)
[2021-08-29] MEDS ORDERED: Thiamine 100 MG/ML 2 ml VIAL 100 MG, Folic Acid IV 1 MG, Multiple Vitamin IV ADULT 10 M... IV ONE (16:10)
[2021-08-29 18:05] LABS: ABS Eosinophils 0.1 10^3/ul (0-0.6); ABS Lymphocytes 2.2 10^3/ul (1.0-4.8); ABS Monocytes 0.4 10^3/ul (0-0.8); ABS Neutrophils 2.4 10^3/ul (1.5-7.7); Eosinophil % 1.8 %; Hematocrit 38 % (35-47); Hemoglobin 12.4 g/dL (12.0-16.0); Mean Corpuscular HGB Conc 33 g/dL (31-36); Mean Corpuscular Hemoglobin 26 pg (27-31); Mean Corpuscular Volume 81 fL (80-97); Mean Platelet Volume 7.8 fL (7.4-10.4); Nucleated Red Blood Cells % 0.1; Platelet Count 261 10^3/uL (150-450); Red Cell Distribution Width 15 % (10-15); White Blood Count 5.2 10^3/uL (3.5-10.8)
[2021-08-29 18:10] LABS: INR 0.96 (0.86-1.15)
[2021-08-29 18:12] LABS: Urine Appearance Cloudy; Urine Bilirubin Negative (Negative); Urine Blood 1+ (Negative); Urine Color Yellow; Urine Glucose Negative (Negative); Urine Ketones Negative (Negative); Urine Nitrite Negative (Negative); Urine Protein Negative (Negative); Urine Specific Gravity 1.013 (1.002-1.030); Urine Urobilinogen Negative (Negative)
[2021-08-29 18:23] LABS: ALT 50 U/L (7-52); AST 52 U/L (13-39); Albumin 4.1 g/dL (3.2-5.2); Albumin/Globulin Ratio 1.6 (1-3); Alkaline Phosphatase 87 U/L (35-149); Anion Gap 4 mmol/L (2-11); Blood Urea Nitrogen 10 mg/dL (6-24); CO2 Carbon Dioxide 32 mmol/L (22-32); Calcium 8.3 mg/dL (8.6-10.3); Chloride 101 mmol/L (101-111); Globulin 2.6 g/dL (2-4); Glucose 86 mg/dL (70-100); Magnesium 1.9 mg/dL (1.9-2.7); Potassium 4.2 mmol/L (3.5-5.0); Sodium 137 mmol/L (135-145); Total Protein 6.7 g/dL (6.4-8.9); eGFR CKD-EPI 116.3 (>60)
[2021-08-29 18:28] LABS: Urine Bacteria 1+ (Absent); Urine Red Blood Cell Trace(0-2/hpf) (Absent); Urine Squamous Epithelial Cell Present (Absent); Urine White Blood Cell 2+(11-20/hpf) (Absent)
[2021-08-29] MEDS ORDERED: D5W 500 ml BAG 500 ML IV SCH ×2 (22:21→23:45)
[2021-08-29 22:53] LABS: Alcohol, S < 13 mg/dL (<13)
[2021-08-29 23:41] LABS: HCG Pregnancy < 0.60 mIU/mL
[2021-08-29] MEDS: Enoxaparin 40 MG/0.4 ML SYR SUBCUT SCH (23:56)
[2021-08-30 00:13] LABS: Urine Benzodiazepine Screen Presumptive Positive (None Detect); Urine Cannabinoids Screen None Detected (None Detect); Urine Opiates Screen None Detected (None Detect)
[2021-08-30 05:55] LABS: Hematocrit 34 % (35-47); Hemoglobin 11.3 g/dL (12.0-16.0); Mean Corpuscular HGB Conc 33 g/dL (31-36); Mean Corpuscular Hemoglobin 27 pg (27-31); Mean Corpuscular Volume 80 fL (80-97); Mean Platelet Volume 7.8 fL (7.4-10.4); Platelet Count 228 10^3/uL (150-450); Red Blood Count 4.23 10^6 /uL (3.70-4.87); Red Cell Distribution Width 16 % (10-15); White Blood Count 5.3 10^3/uL (3.5-10.8)
[2021-08-30 06:10] LABS: Calcium 8.5 mg/dL (8.6-10.3); Magnesium 1.9 mg/dL (1.9-2.7); Potassium 3.9 mmol/L (3.5-5.0); eGFR CKD-EPI 102.1 (>60)
[2021-08-30] MEDS ORDERED: D5NS 0.9% 1000 ml BAG 1,000 ML IV SCH (07:00)
[2021-08-30] MEDS: Amphetamine MIXED SALT 10mgTAB PO SCH ×2 (08:50→18:19)
[2021-08-30] MEDS: Buprenorp/Nalox 8-2 MG FILM SL FILM SCH (08:51)
[2021-08-31] MEDS: Enoxaparin 40 MG/0.4 ML SYR SUBCUT SCH (00:18)
[2021-08-31 06:05] LABS: ABS Eosinophils 0.2 10^3/ul (0-0.6); ABS Lymphocytes 2.3 10^3/ul (1.0-4.8); ABS Monocytes 0.4 10^3/ul (0-0.8); ABS Neutrophils 1.8 10^3/ul (1.5-7.7); Eosinophil % 3.3 %; Hematocrit 36 % (35-47); Hemoglobin 11.6 g/dL (12.0-16.0); Lymphocyte % 49.6 %; Mean Corpuscular HGB Conc 33 g/dL (31-36); Mean Corpuscular Hemoglobin 26 pg (27-31); Mean Corpuscular Volume 81 fL (80-97); Mean Platelet Volume 8.2 fL (7.4-10.4); Nucleated Red Blood Cells % 0.3; Platelet Count 237 10^3/uL (150-450); Red Blood Count 4.41 10^6 /uL (3.70-4.87); Red Cell Distribution Width 16 % (10-15); White Blood Count 4.7 10^3/uL (3.5-10.8)
[2021-08-31 06:17] LABS: Calcium 8.7 mg/dL (8.6-10.3); Magnesium 1.9 mg/dL (1.9-2.7); Potassium 4.4 mmol/L (3.5-5.0); eGFR CKD-EPI 102.1 (>60)
[2021-08-31] MEDS: Buprenorp/Nalox 8-2 MG FILM SL FILM SCH (10:02)
[2021-08-31] MEDS: Amphetamine MIXED SALT 10mgTAB PO SCH (10:22)
[2021-09-01] MEDS: Enoxaparin 40 MG/0.4 ML SYR SUBCUT SCH ×2 (00:53→21:13)
[2021-09-01 06:15] LABS: ABS Eosinophils 0.2 10^3/ul (0-0.6); ABS Lymphocytes 2.8 10^3/ul (1.0-4.8); ABS Monocytes 0.5 10^3/ul (0-0.8); ABS Neutrophils 2.2 10^3/ul (1.5-7.7); Eosinophil % 3.4 %; Hematocrit 36 % (35-47); Hemoglobin 11.8 g/dL (12.0-16.0); Lymphocyte % 48.7 %; Mean Corpuscular HGB Conc 33 g/dL (31-36); Mean Corpuscular Hemoglobin 27 pg (27-31); Mean Corpuscular Volume 80 fL (80-97); Mean Platelet Volume 8.1 fL (7.4-10.4); Nucleated Red Blood Cells % 0.2; Platelet Count 240 10^3/uL (150-450); Red Blood Count 4.42 10^6 /uL (3.70-4.87); Red Cell Distribution Width 15 % (10-15); White Blood Count 5.8 10^3/uL (3.5-10.8)
[2021-09-01 06:33] LABS: Albumin 3.7 g/dL (3.2-5.2); Albumin/Globulin Ratio 1.5 (1-3); Calcium 8.8 mg/dL (8.6-10.3); Direct Bilirubin 0.1 mg/dL (0.03-0.18); Globulin 2.5 g/dL (2-4); Indirect Bilirubin 0.1 mg/dL (0.3-1.0); Magnesium 1.9 mg/dL (1.9-2.7); Phosphorus 4.7 mg/dL (2.5-5.0); Potassium 3.9 mmol/L (3.5-5.0); Total Bilirubin 0.2 mg/dL (0.2-1.0); Total Protein 6.2 g/dL (6.4-8.9); eGFR CKD-EPI 103.7 (>60)
[2021-09-01] MEDS: Buprenorp/Nalox 8-2 MG FILM SL FILM SCH ×2 (10:45→21:15)
[2021-09-01] MEDS ORDERED: Lactated Ringers 1000 ml BAG 1,000 ML IV ONE (14:46)
[2021-09-01] MEDS: Nicotine PATCH 14 MG/24 HR PATCH TRANSDERM SCH (15:23)
[2021-09-01] MEDS ORDERED: Buprenorp/Nalox 4-1 MG FILM SL FILM ONE (16:27)
[2021-09-01] MEDS ORDERED: Lorazepam PYXIS KEY PRN (16:29)
[2021-09-01 18:34] LABS: Urine Benzodiazepine Screen Presumptive Positive (None Detect); Urine Cannabinoids Screen None Detected (None Detect); Urine Opiates Screen None Detected (None Detect)
[2021-09-01] MEDS: Nicotine GUM 2MG FRUIT FLAVOR PO PRN (21:17)
[2021-09-02] MEDS ORDERED: Ondansetron 4 mg VIAL 2 MG/ML 2 ml VIAL IV PRN (09:57)
[2021-09-02] MEDS: Buprenorp/Nalox 8-2 MG FILM SL FILM SCH ×2 (10:04→20:53)
[2021-09-02] MEDS: Nicotine PATCH 14 MG/24 HR PATCH TRANSDERM SCH (10:10)
[2021-09-02] MEDS: Enoxaparin 40 MG/0.4 ML SYR SUBCUT SCH (21:20)
[2021-09-03] MEDS: Nicotine PATCH 14 MG/24 HR PATCH TRANSDERM SCH (09:45)
[2021-09-03] MEDS: Buprenorp/Nalox 8-2 MG FILM SL FILM SCH (09:48)
[2021-09-03] MEDS: Nicotine GUM 2MG FRUIT FLAVOR PO PRN (09:54)
[2021-09-03 11:25] VITALS: BP 99/60
== END 2021-09-03 12:49 | disposition home or self-care (01) | DRG 53 ==
LOC: ED 15:14 → MEDTELE 22:09 → SUATTDRO 22:09 → MEDTELE 08-30 04:37
PROVIDERS: ADMIT Internal Medicine; ATTEND Internal Medicine

== ENCOUNTER 2023-07-18 17:31 | Inpatient (IN) ==
[2023-07-18] MEDS ORDERED: diazePAM INJ CARPUJECT 5 MG/ML SYRINGE IV ONE (18:16)
[2023-07-18] MEDS ORDERED: Gabapentin 600 mg TAB (NF) PO ONE (18:17)
[2023-07-18] MEDS ORDERED: Lactated Ringers 1000 ml BAG 1,000 ML IV ONE ×2 (18:17→23:32)
[2023-07-18 19:13] LABS: ABS Lymphocytes 0.6 10^3/uL (1.0-4.8); ABS Monocytes 0.5 10^3/uL (0.0-0.9); ABS Neutrophils 3.2 10^3/uL (1.5-7.6); ABS Nucleated RBC 0.01 10^3/ul; Eosinophil % 0.3 %; Hematocrit 33.7 % (35-45); Lymphocyte % 13.5 %; Mean Corpuscular Hemoglobin 27.1 pg (27-33); Mean Corpuscular Hgb Conc 32.8 g/dL (31-36); Mean Corpuscular Volume 82.5 fL (80-97); Mean Platelet Volume 8.3 fL (7.5-11.2); Nucleated Red Blood Cells % 0.2 %/100WBC (0.0-0.8); Platelet Count 179 10^3/uL (150-450); Red Blood Count 4.08 10^6/uL (3.63-4.92); Red Cell Distribution Width 15.1 % (12-17); White Blood Count 4.3 10^3/uL (3.8-11.8)
[2023-07-18 19:35] LABS: ALT 16 U/L (7-52); AST 28 U/L (13-39); Albumin 4.2 g/dL (3.2-5.2); Albumin/Globulin Ratio 1.7 (1-3); Alkaline Phosphatase 43 U/L (35-149); Anion Gap 12 mmol/L (2-16); Blood Urea Nitrogen 10 mg/dL (6-24); CO2 Carbon Dioxide 23 mmol/L (22-32); Calcium 8.2 mg/dL (8.6-10.3); Chloride 96 mmol/L (101-111); Creatinine, Serum 0.71 mg/dL (0.51-0.95); Globulin 2.5 g/dL (2-4); Glucose 64 mg/dL (70-100); Magnesium 1.7 mg/dL (1.9-2.7); Phosphorus 3.5 mg/dL (2.5-5.0); Potassium 3.1 mmol/L (3.5-5.0); Sodium 131 mmol/L (135-145); Total Bilirubin 0.3 mg/dL (0.2-1.0); Total Protein 6.7 g/dL (6.4-8.9); eGFR CKD-EPI 112.9 (>60)
[2023-07-18 20:10] LABS: HCG Pregnancy < 0.60 mIU/mL; High Sens Troponin Baseline < 3 pg/mL (<15)
[2023-07-18 20:18] LABS: Lipase 12 U/L (11.0-82.0)
[2023-07-18] MEDS ORDERED: KCL 20 MEQ/100 ML IVPREMIX 20 MEQ/100 ML BAG IV ONE (20:29)
[2023-07-18] MEDS ORDERED: Magnesium Sulfate 2 gm BAG 2 GM/50 ML BAG IVPB ONE (20:29)
[2023-07-18] MEDS ORDERED: CALCIUM GLUCONATE 1GM/50ML NS 1 GM/50 ML BAG IV ONE (20:30)
[2023-07-18 20:53] LABS: High Sensitivity Troponin 1 Hr < 3 pg/mL (<15)
[2023-07-18] MEDS ORDERED: Lidocaine 2% w/ EPI 1:200,000 MPF 20 ML SDV VIAL ONE (22:15)
[2023-07-18 22:47] LABS: Body Fluid Source Cerebral Spinal
[2023-07-18 23:32] LABS: CSF Glucose 53 mg/dL (40-70)
[2023-07-19 00:15] LABS: Body Fluid Appearance Clear; Body Fluid Color Colorless; CSF Tube # 2
[2023-07-19 00:18] LABS: CSF Body Fluid WBC 2 /mcL
[2023-07-19 00:20] LABS: Body Fluid Mono 13 %; Body Fluid Total Cells Counted 15
[2023-07-19] MEDS: Lactated Ringers 1000 ml BAG 1,000 ML IV SCH ×2 (00:44→07:49)
[2023-07-19] MEDS ORDERED: Remdesivir 100 mg Vial 200 MG in NS 0.9% 250 ml 210 ML IV ONE (01:00)
[2023-07-19] MEDS: Enoxaparin 40 MG/0.4 ML SYR SUBCUT SCH (03:40)
[2023-07-19 06:02] LABS: ABS Lymphocytes 0.9 10^3/uL (1.0-4.8); ABS Monocytes 0.4 10^3/uL (0.0-0.9); ABS Neutrophils 2.5 10^3/uL (1.5-7.6); Eosinophil % 0.5 %; Hematocrit 29.5 % (35-45); Hemoglobin 9.8 g/dL (11.5-14.3); Lymphocyte % 23.2 %; Mean Corpuscular Hemoglobin 27.3 pg (27-33); Mean Corpuscular Hgb Conc 33.4 g/dL (31-36); Mean Corpuscular Volume 81.8 fL (80-97); Mean Platelet Volume 8.4 fL (7.5-11.2); Nucleated Red Blood Cells % 0.1 %/100WBC (0.0-0.8); Platelet Count 155 10^3/uL (150-450); Red Cell Distribution Width 15.4 % (12-17); White Blood Count 3.8 10^3/uL (3.8-11.8)
[2023-07-19 06:02] LABS: INR 1.15 (0.83-1.13)
[2023-07-19 06:04] LABS: INR 1.13 (0.83-1.13)
[2023-07-19 06:19] LABS: Albumin 3.6 g/dL (3.2-5.2); Albumin/Globulin Ratio 1.6 (1-3); Calcium 7.9 mg/dL (8.6-10.3); Creatinine, Serum 0.65 mg/dL (0.51-0.95); Globulin 2.2 g/dL (2-4); Magnesium 1.8 mg/dL (1.9-2.7); Potassium 3.4 mmol/L (3.5-5.0); Total Bilirubin 0.2 mg/dL (0.2-1.0); Total Protein 5.8 g/dL (6.4-8.9); eGFR CKD-EPI 116.9 (>60)
[2023-07-19 06:33] LABS: Alcohol, S < 13 mg/dL (<13); LDH 135 U/L (140-271)
[2023-07-19 06:50] LABS: TSH Ultra Thyroid Stim Horm 1.01 mcIU/mL (0.34-5.60)
[2023-07-19 06:55] LABS: Ferritin 84.5 ng/mL (11-307)
[2023-07-19 07:02] LABS: Vitamin B12 500 pg/mL (180-914)
[2023-07-19] MEDS ORDERED: Buprenorp/Nalox 8-2 MG FILM SL SCH ×2 (09:00→10:00)
[2023-07-19 09:43] LABS: Urine Appearance Cloudy; Urine Bilirubin Negative (Negative); Urine Blood 1+ (Negative); Urine Color Straw; Urine Glucose Negative (Negative); Urine Ketones 1+ (Negative); Urine Nitrite Negative (Negative); Urine Protein Negative (Negative); Urine Specific Gravity 1.005 (1.002-1.030); Urine Urobilinogen Negative (Negative)
[2023-07-19 09:52] LABS: Urine Benzodiazepine Screen Presumptive Positive (None Detect); Urine Cannabinoids Screen None Detected (None Detect); Urine Opiates Screen None Detected (None Detect)
[2023-07-19 09:54] LABS: Urine Bacteria 1+ (Absent); Urine Red Blood Cell Trace(0-2/hpf) (Absent); Urine Squamous Epithelial Cell Present (Absent); Urine White Blood Cell Trace(0-5/hpf) (Absent)
[2023-07-19] MEDS: Buprenorp/Nalox 8-2 MG FILM SL PRN (21:12)
[2023-07-20] MEDS: Enoxaparin 40 MG/0.4 ML SYR SUBCUT SCH ×2 (00:36→23:50)
[2023-07-20 07:11] LABS: ABS Eosinophils 0.1 10^3/uL (0.0-0.5); ABS Lymphocytes 1.5 10^3/uL (1.0-4.8); ABS Monocytes 0.3 10^3/uL (0.0-0.9); ABS Neutrophils 2.6 10^3/uL (1.5-7.6); Eosinophil % 2.1 %; Hematocrit 32.1 % (35-45); Hemoglobin 10.7 g/dL (11.5-14.3); Lymphocyte % 32.4 %; Mean Corpuscular Hemoglobin 27.6 pg (27-33); Mean Corpuscular Hgb Conc 33.4 g/dL (31-36); Mean Corpuscular Volume 82.7 fL (80-97); Mean Platelet Volume 8.6 fL (7.5-11.2); Nucleated Red Blood Cells % 0.1 %/100WBC (0.0-0.8); Platelet Count 164 10^3/uL (150-450); Red Blood Count 3.88 10^6/uL (3.63-4.92); Red Cell Distribution Width 15.6 % (12-17); White Blood Count 4.5 10^3/uL (3.8-11.8)
[2023-07-20 07:13] LABS: INR 1.14 (0.83-1.13)
[2023-07-20 07:29] LABS: Albumin 3.4 g/dL (3.2-5.2); Albumin/Globulin Ratio 1.4 (1-3); Calcium 7.8 mg/dL (8.6-10.3); Creatinine, Serum 0.63 mg/dL (0.51-0.95); Globulin 2.4 g/dL (2-4); Magnesium 1.8 mg/dL (1.9-2.7); Potassium 3.4 mmol/L (3.5-5.0); Total Bilirubin 0.2 mg/dL (0.2-1.0); Total Protein 5.8 g/dL (6.4-8.9); eGFR CKD-EPI 117.8 (>60)
[2023-07-20] MEDS ORDERED: Potassium Chloride LIQUID 20 MEQ/15 ML LIQUID PO ONE (07:37)
[2023-07-20] MEDS ORDERED: Magnesium Sulfate 2 gm BAG 2 GM/50 ML BAG IVPB ONE (07:37)
[2023-07-20] MEDS: Remdesivir 100 mg Vial 100 MG in NS 0.9% 250 ml 230 ML IV SCH (08:28)
[2023-07-20] MEDS ORDERED: NS 0.9% 500 ml BAG 500 ML IV ONE (09:09)
[2023-07-20] MEDS: Buprenorp/Nalox 8-2 MG FILM SL PRN ×2 (09:15→21:13)
[2023-07-21 07:26] LABS: INR 1.2 (0.83-1.13)
[2023-07-21 07:44] LABS: Albumin 3.1 g/dL (3.2-5.2); Albumin/Globulin Ratio 1.4 (1-3); Calcium 7.8 mg/dL (8.6-10.3); Creatinine, Serum 0.55 mg/dL (0.51-0.95); Globulin 2.2 g/dL (2-4); Potassium 3.6 mmol/L (3.5-5.0); Total Bilirubin 0.2 mg/dL (0.2-1.0); Total Protein 5.3 g/dL (6.4-8.9); eGFR CKD-EPI 121.8 (>60)
[2023-07-21] MEDS: Remdesivir 100 mg Vial 100 MG in NS 0.9% 250 ml 230 ML IV SCH (08:59)
[2023-07-21 17:50] LABS: HSV 1 PCR, CSF Negative (Negative); HSV 2 PCR, CSF Negative (Negative)
[2023-07-21] MEDS ORDERED: Enoxaparin 40 MG/0.4 ML SYR SUBCUT SCH (21:00)
[2023-07-22 07:35] LABS: Albumin 3.1 g/dL (3.2-5.2); Albumin/Globulin Ratio 1.4 (1-3); Creatinine, Serum 0.61 mg/dL (0.51-0.95); Globulin 2.2 g/dL (2-4); Potassium 3.9 mmol/L (3.5-5.0); Total Bilirubin 0.2 mg/dL (0.2-1.0); Total Protein 5.3 g/dL (6.4-8.9); eGFR CKD-EPI 118.8 (>60)
[2023-07-22 08:00] LABS: INR 1.14 (0.83-1.13)
[2023-07-22 10:39] VITALS: BP 98/60
== END 2023-07-22 11:57 | disposition home or self-care (01) | DRG 720 ==
LOC: EDHOLD 17:31 → ED 17:31 → SUATTDRO 22:47 → MEDTELE 07-19 00:24 → SUATTDRO 07-19 11:12
PROVIDERS: ADMIT Internal Medicine; ATTEND Hospitalist

== ENCOUNTER 2023-10-05 22:39 | Inpatient (IN) ==
[2023-10-05 23:38] LABS: ABS Eosinophils 0.1 10^3/uL (0.0-0.5); ABS Lymphocytes 2.1 10^3/uL (1.0-4.8); ABS Monocytes 0.3 10^3/uL (0.0-0.9); ABS Neutrophils 2.8 10^3/uL (1.5-7.6); Hematocrit 35.3 % (35-45); Hemoglobin 11.7 g/dL (11.5-14.3); Lymphocyte % 38.9 %; Mean Corpuscular Hemoglobin 27.9 pg (27-33); Mean Corpuscular Hgb Conc 33.2 g/dL (31-36); Mean Platelet Volume 7.4 fL (7.5-11.2); Nucleated Red Blood Cells % 0.1 %/100WBC (0.0-0.8); Platelet Count 236 10^3/uL (150-450); Red Cell Distribution Width 13.9 % (12-17); White Blood Count 5.3 10^3/uL (3.8-11.8)
[2023-10-05 23:45] LABS: Urine Appearance Clear; Urine Bilirubin Negative (Negative); Urine Blood Trace (Negative); Urine Color Light-Yellow; Urine Glucose Negative (Negative); Urine Ketones Negative (Negative); Urine Nitrite Negative (Negative); Urine Protein Negative (Negative); Urine Specific Gravity 1.022 (1.002-1.030); Urine Urobilinogen Negative (Negative)
[2023-10-05 23:54] LABS: Urine Benzodiazepine Screen Presumptive Positive (None Detect); Urine Cannabinoids Screen None Detected (None Detect); Urine Opiates Screen None Detected (None Detect)
[2023-10-06 00:16] LABS: ALT 11 U/L (7-52); AST 14 U/L (13-39); Acetaminophen < 15 mcg/mL; Albumin 4.2 g/dL (3.2-5.2); Albumin/Globulin Ratio 1.8 (1-3); Alcohol, S < 13 mg/dL (<13); Alkaline Phosphatase 40 U/L (35-149); Anion Gap 6 mmol/L (2-16); Blood Urea Nitrogen 16 mg/dL (6-24); CO2 Carbon Dioxide 31 mmol/L (22-32); Calcium 9.1 mg/dL (8.6-10.3); Chloride 96 mmol/L (101-111); Creatinine, Serum 0.75 mg/dL (0.51-0.95); Globulin 2.3 g/dL (2-4); Glucose 81 mg/dL (70-100); Potassium 3.8 mmol/L (3.5-5.0); Salicylate < 2.50 mg/dL (<30); Sodium 133 mmol/L (135-145); Total Bilirubin 0.4 mg/dL (0.2-1.0); Total Protein 6.5 g/dL (6.4-8.9); eGFR CKD-EPI 105.7 (>60)
[2023-10-06 00:25] LABS: HCG Pregnancy < 0.60 mIU/mL
[2023-10-06] MEDS ORDERED: Al Hydrox/Mg Hydrox/Simet LIQ 30 ML UDC PO PRN (00:26)
[2023-10-06 00:32] LABS: TSH Ultra Thyroid Stim Horm 6.21 mcIU/mL (0.34-5.60)
[2023-10-06] MEDS: Buprenorp/Nalox 8-2 MG FILM SL SCH (12:32)
[2023-10-06] MEDS ORDERED: Clotrimazole 1% CREAM 45 GM TOPICAL PRN (15:27)
[2023-10-06] MEDS: Nicotine PATCH 21 MG/24 HR PATCH TRANSDERM SCH (15:32)
[2023-10-06] MEDS: Amphetamine MIXED SALT 10mgTAB PO ONE (15:33)
[2023-10-06] MEDS: Nicotine GUM 2MG FRUIT FLAVOR PO PRN (15:36)
[2023-10-06] MEDS: Clotrimazole 1% CREAM 30 gm TOPICAL PRN (19:16)
[2023-10-06] MEDS ORDERED: Clotrimazole 1% CREAM 45 GM TOPICAL SCH (21:00)
[2023-10-07] MEDS: Amphetamine MIXED SALT 10mgTAB PO SCH (08:21)
[2023-10-07] MEDS: Polyethylene Glycol 3350 17 GM PACKET PO SCH (22:30)
[2023-10-08] MEDS: Senna TAB 8.6 mg TAB PO PRN (17:42)
[2023-10-09] MEDS: Polyethylene Glycol 3350 17 GM PACKET PO SCH (23:42)
[2023-10-10] MEDS: Buprenorp/Nalox 8-2 MG FILM SL PRN (08:35)
[2023-10-10] MEDS: Fluticasone NASAL SPRAY 50MCG 16 gm SPRAY BTL BOTH NARES SCH (20:50)
[2023-10-13] MEDS: Magnesium CITRATE LIQ 300 ML BTL PO ONE (22:36)
[2023-10-14] MEDS: Clotrimazole 1% CREAM 45 GM TOPICAL PRN (08:56)
[2023-10-14] MEDS ORDERED: Magnesium CITRATE LIQ 300 ML BTL PO ONE (19:00)
[2023-10-15] MEDS: Magnesium CITRATE LIQ 300 ML BTL PO ONE (09:13)
[2023-10-15] MEDS: Sodium Phosphate ADULT ENEMA 133 ML BTL PR ONE (21:26)
[2023-10-21 11:21] VITALS: BP 107/72
== END 2023-10-21 16:35 | disposition home or self-care (01) | DRG 751 ==
LOC: ED 22:39 → EDHOLD 10-06 00:26 → ED 10-06 01:04 → BSU 10-06 01:04
PROVIDERS: ADMIT Psychiatry & Neurology Psychiatry; ATTEND Psychiatry & Neurology Psychiatry